=== PATIENT | male | born 1955 | race Caucasian/White ===

== ENCOUNTER 2017-06-13 20:53 | Inpatient (IN) | payer OTHER ==
[2017-06-13 23:01] LABS: BASOPHIL 0.8 % (0-2.0); EOSINOPHIL 6.7 % (0-4.5); MCH 32.8 pg (25.7-33.7); MEAN CELL VOLUME 96.5 fl (80-96); MEAN PLT VOLUME 9.1 fl (7.5-11.1); NEUTROPHILS 67.5 % (42.8-82.8); PLATELET COUNT 179 K/MM3 (134-434); RDW 12.9 % (11.9-15.9); WHITE BLOOD COUNT 11.2 K/mm3 (4.0-10.0)
[2017-06-13 23:13] LABS: INR 1.69 (0.82-1.09); PROTHROMBIN TIME (PATIENT) 18.8 SEC (9.98-11.88)
[2017-06-13 23:23] LABS: ALBUMIN 3.8 g/dl (3.4-5.0); ALK PHOS 100 U/L (45-117); ANION GAP 7 (8-16); BILIRUBIN,TOTAL 0.3 mg/dL (0.2-1.0); CALCIUM 9.1 mg/dL (8.5-10.1); CO2 26 mmol/L (21-32); CREATININE 1.1 mg/dL (0.7-1.3); GLUCOSE,RANDOM 110 mg/dL (74-106); SGOT/AST 22 U/L (15-37); SGPT/ALT 35 U/L (12-78); TOT PROT 6.9 g/dl (6.4-8.2)
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
[2017-06-14] MEDS ORDERED: CLINDAMYCIN 600MG PREMIX IVPB 50 ML IVPB ONE ×3 (00:13→08:35)
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
[2017-06-14] MEDS ORDERED: ACETAMINOPHEN 325 MG TABLET (FP) PO PRN (01:12)
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
[2017-06-14] MEDS ORDERED: METOPROLOL TARTRATE 5 MG/5 ML VIAL IVPUSH PRN (01:50)
[2017-06-14] MEDS ORDERED: diazePAM 5 MG TABLET PO ONE (03:21)
[2017-06-14] MEDS ORDERED: diazePAM 5 MG TABLET ONE (03:47)
[2017-06-14] MEDS: diazePAM 5 MG TABLET PO SCH ×4 (06:30→23:03)
[2017-06-14 07:45] LABS: BASOPHIL 0.6 % (0-2.0); EOSINOPHIL 5.1 % (0-4.5); MCH 32.6 pg (25.7-33.7); MCHC 33.7 g/dl (32.0-35.9); MEAN CELL VOLUME 96.8 fl (80-96); NEUTROPHILS 76.4 % (42.8-82.8); PLATELET COUNT 163 K/MM3 (134-434); RDW 12.9 % (11.9-15.9); WHITE BLOOD COUNT 11.7 K/mm3 (4.0-10.0)
[2017-06-14 08:07] LABS: ANION GAP 7 (8-16); CALCIUM 8.9 mg/dL (8.5-10.1); CO2 26 mmol/L (21-32); GLUCOSE,RANDOM 109 mg/dL (74-106)
[2017-06-14 08:16] LABS: FREE T4 0.95 ng/dl (0.76-1.16); THYROID STIMULATING HORMONE 2.18 uIU/ml (0.358-3.74)
[2017-06-14] MEDS: CLINDAMYCIN 600MG PREMIX IVPB 50 ML IVPB SCH ×2 (08:44→17:26)
[2017-06-14] MEDS ORDERED: ACETAMINOPHEN 325 MG TABLET (FP) ONE (08:50)
[2017-06-14] MEDS ORDERED: METOPROLOL SUCCINATE 25 MG TAB.SR.24H (FP) PO SCH (10:00)
[2017-06-14] MEDS ORDERED: METHOCARBAMOL 500 MG TABLET PO SCH ×2 (10:00→22:00)
[2017-06-14 11:25] VITALS: BMI 38.2
[2017-06-14] MEDS ORDERED: PNEUMOC 13-VAL CONJ-DIP CRM/PF 0.5 ML DISP.SYRIN IM ONE (11:25)
[2017-06-14] MEDS: PARoxetine HCL 20 MG TABLET (FP) PO SCH (12:02)
[2017-06-14] MEDS: LITHIUM CARBONATE 300 MG CAPSULE (FP) PO SCH ×2 (12:03→22:49)
--- NOTE | 2017-06-14 12:56 | EKG ---
Test Reason : Blood Pressure : / mmHG Vent. Rate : 109 BPM Atrial Rate : 101 BPM P-R Int : 000 ms QRS Dur : 102 ms QT Int : 380 ms P-R-T Axes : 000 082 032 degrees QTc Int : 511 ms ATRIAL FIBRILLATION WITH RAPID VENTRICULAR RESPONSE INCOMPLETE RIGHT BUNDLE BRANCH BLOCK ABNORMAL ECG WHEN COMPARED WITH ECG OF 22-OCT-2015 21:06, QUESTIONABLE CHANGE IN QRS AXIS REPEAT EKG IF CLINICALLY INDICATED Confirmed by JANICE LANDRUM MD ([id number] on 06/14/2017 12:56:21 PM Referred By: Confirmed By:JANICE LANDRUM MD
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
[2017-06-14] MEDS ORDERED: PNEUMOCOCCAL 23 VACCINE 0.5 ML VIAL IM ONE (15:00)
[2017-06-14] MEDS: HYDROCORTISONE 2.5% TOPICAL CREAM 30 GM TUBE TP SCH ×2 (16:03→22:50)
[2017-06-14] MEDS ORDERED: FUROSEMIDE 40 MG/4 ML INJECTABLE VIAL IVPUSH ONE (18:03)
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
[2017-06-14] MEDS: RIVAROXABAN 20 MG TABLET PO SCH (20:34)
[2017-06-14] MEDS: CYCLOBENZAPRINE HCL 10 MG TABLET (FP) PO SCH (20:34)
[2017-06-14] MEDS: METOPROLOL SUCCINATE 50 MG TAB.SR.24H (FP) PO SCH (22:50)
[2017-06-15] MEDS: CLINDAMYCIN 600MG PREMIX IVPB 50 ML IVPB SCH ×3 (01:38→18:39)
[2017-06-15] MEDS: diazePAM 5 MG TABLET PO SCH ×4 (05:59→23:12)
[2017-06-15 07:37] LABS: BASOPHIL 0.8 % (0-2.0); MEAN PLT VOLUME 9.2 fl (7.5-11.1); NEUTROPHILS 72.5 % (42.8-82.8); PLATELET COUNT 175 K/MM3 (134-434); RDW 12.6 % (11.9-15.9); WHITE BLOOD COUNT 11.3 K/mm3 (4.0-10.0)
[2017-06-15 08:07] LABS: ANION GAP 7 (8-16); CALCIUM 8.9 mg/dL (8.5-10.1); CO2 26 mmol/L (21-32); CREATININE 1.1 mg/dL (0.7-1.3); GLUCOSE,RANDOM 99 mg/dL (74-106)
[2017-06-15] MEDS ORDERED: PARoxetine HCL 10 MG TABLET (FP) ONE (08:59)
[2017-06-15] MEDS ORDERED: PT OWN MED DRAWER 7, Y5N ONE (09:00)
[2017-06-15] MEDS ORDERED: RIVAROXABAN 10 MG TABLET PO SCH (10:00)
[2017-06-15] MEDS: RIVAROXABAN 20 MG TABLET PO SCH (10:12)
[2017-06-15] MEDS: CYCLOBENZAPRINE HCL 10 MG TABLET (FP) PO SCH (10:12)
[2017-06-15] MEDS: LITHIUM CARBONATE 300 MG CAPSULE (FP) PO SCH ×2 (10:12→22:10)
[2017-06-15] MEDS: METOPROLOL SUCCINATE 50 MG TAB.SR.24H (FP) PO SCH ×2 (10:12→22:10)
[2017-06-15] MEDS: HYDROCORTISONE 2.5% TOPICAL CREAM 30 GM TUBE TP SCH ×2 (10:13→22:10)
[2017-06-15] MEDS: PARoxetine HCL 20 MG TABLET (FP) PO SCH (10:13)
--- NOTE | 2017-06-15 14:13 | PN ---
Physical Exam: SUBJECTIVE: Patient seen and examined. says the itching is better. feels better. denies fever. OBJECTIVE: Vital Signs Period Temp Pulse Resp BP Sys/Reyes Pulse Ox Last 24 Hr 97.5 F-98.4 F 87-115 18-20 140-158/80-99 96 GENERAL: The patient is awake, alert, in no acute distress. EYES: PERRL, EOMI LUNGS: Breath sounds equal, clear to auscultation bilaterally, no wheezes, no crackles, no accessory muscle use. HEART: afib, tachycardic, S1, S2 without murmur, rub or gallop. ABDOMEN: firm, nontender, nondistended, normoactive bowel sounds, no guarding EXTREMITIES: 2+ radial pulses, weak DP pulses b/l, blanching erythema from toes to below knees, 1+ nonpitting edema on right, trace on left lower leg, no edema in left foot. left anterior lower leg with 2 fluid filled bulla decreased in size today, lateral with cloudy fluid and medial with serous fluid and few black scabs. right lower anterior leg with large ulcer(eschar fell off with last dressing apparently), scant yellow discharge(none esxpressibly) Laboratory Results - last 24 hr 06/14/17 06/15/17 06/15/17 07:10 05:35 05:35 WBC 11.3 H RBC 4.29 Hgb 13.7 Hct 41.6 MCV 97.0 H MCH 32.0 MCHC 33.0 RDW 12.6 Plt Count 175 MPV 9.2 Neutrophils % 72.5 Lymphocytes % 11.5 D Monocytes % 10.2 Eosinophils % 5.0 H Basophils % 0.8 Sodium 142 Potassium 4.2 Chloride 109 H Carbon Dioxide 26 Anion Gap 7 L BUN 26 H D Creatinine 1.1 Random Glucose 99 Calcium 8.9 [place] 0.6 Active Medications Generic Name Dose Route Start Last Admin Trade Name Freq PRN Reason Stop Dose Admin Acetaminophen 650 mg 06/14/17 01:12 06/14/17 08:58 Tylenol - PO 650 mg Q6H PRN Administration FEVER OR PAIN Cyclobenzaprine HCl 10 mg 06/14/17 19:30 06/15/17 10:12 Flexeril - PO 10 mg DAILY [facility] Administration Diazepam 5 mg 06/14/17 06:00 06/15/17 12:37 Valium - PO 5 mg Q6HPO [facility] Administration Hydrocortisone 1 applic 06/14/17 22:00 06/15/17 10:13 Anusol 2.5% Hc Cream - TP 1 applic BID [facility] Administration Clindamycin Phosphate 50 mls @ 100 mls/hr 06/14/17 08:00 06/15/17 10:13 Cleocin 600 Mg Premix Ivpb - IVPB 100 mls/hr Q8H-IV [facility] Administration [place] Carbonate 600 mg 06/14/17 10:00 06/15/17 10:12 Eskalith - PO 600 mg BID [facility] Administration Metoprolol Succinate 50 mg 06/14/17 22:00 06/15/17 10:12 Toprol Xl - PO 50 mg BID [facility] Administration Metoprolol Tartrate 5 mg 06/14/17 01:50 Lopressor Injection - IVPUSH Q15M PRN HYPERTENSION Paroxetine HCl 20 mg 06/14/17 10:00 06/15/17 10:13 Paxil - PO 20 mg DAILY [facility] Administration Rivaroxaban 20 mg 06/14/17 19:30 06/15/17 10:12 Xarelto - PO 20 mg DAILY [facility] Administration ASSESSMENT/PLAN: 62 yr old man with HTN, Schizophrenia d/o on Li, afib, hx of stroke presents with b/l le cellulitis placed on observation for IV abx. #Cellulitis of b/l lower extremities with bullae on left leg and eschar on right anterior. neg for DVT - Clindamycin IV q6hr 600mg for infection - wnd cultures with presumptive MSSA, awaiting final C&S to change to oral abx and determine duration - Tylenol 650mg q6 PRN for fever/pain - anusol topical BID on left leg, bacitracin on right leg with dressing changes daily - can give benadryl prn if pt complains of c/o pruritis # Atrial Fibrillation - Xarelto 20mg - rate control with Metoprolol 50mg BID #schizophrenia - [place] level within therapeutic range - Li 600mg po bid - Paxil 30mg po daily - psych consult recommend abilify 5mg po daily #Back spams - flexiril 10mg po - valium 5mg po q6hr Dispo: Place in observation DVT: on xarelto Diet: low Na Visit type - Emergency Visit Emergency Visit: No - New Patient This patient is new to me today: No - Critical Care Critical Care patient: No - Discharge Referral Referred to [facility] No
[2017-06-15] MEDS: BACITRACIN 15 GM TUBE TOPICAL OINTMENT TP SCH (14:35)
--- NOTE | 2017-06-15 15:08 | PN ---
Teaching Attending Note Name of Resident: Montse Eddy ATTENDING PHYSICIAN STATEMENT I saw and evaluated the patient. I reviewed the resident's note and discussed the case with the resident. I agree with the resident's findings and plan as documented. SUBJECTIVE:states pain is improving. denies CP, SOB, fever, chills, N/V/C/D OBJECTIVE: Last Vital Signs Temp Pulse Resp BP Pulse Ox 97.5 F L 105 H 20 142/99 96 06/15/17 14:10 06/15/17 14:10 06/15/17 14:10 06/15/17 14:10 06/14/17 22:00 General NAD Extremities 2+ pitting edema B/L LE, RLE 2 cm ulcer with oozing serous drainage multiple excoriations on LLE ASSESSMENT AND PLAN 62yo M with PMH schizophrenia, CVA, AFIB presented with B/L LE cellulitis 1. B/L LE cellulitis-+WCX showing presumptive MSSA. slight improvement on Clindamycin. however continues to be purulent requiring IV abx. will cont abx therapy for now and wait to c&s are available. 2. Persecutory delusions-appears more calm today and less delusional. was able to confirm with brother that he ensures he takes medications daily. lithium level therapeutic. psych consulted. ky not required at this time will wait for their assessment. 3. LE edema- check echo to r/o CHF. cont to monitor 4. Afib on xarelto- rate controlled. cont home medications, xarelto 5. CVA 6. DVT ppx- xarelto
--- NOTE | 2017-06-15 17:51 | CON.PSY ---
Psychiatry Consult Chief Complaint: I am ok, staff says he has paranoid delusions. Symptoms: reports: Anxiety, Paranoia - Previous Psychiatric Treatment Outpatient: More than 6 mos ago Inpatient: 2 or more prior admissions - Previous Substance Abuse Treatment Outpatient: None Inpatient: None - Reason for Previous Treatment Reason for Previous Treatment: Biploar Illness, Psychotic Episode - Current Medications Current Medications: Active Medications Acetaminophen (Tylenol -) 650 mg PO Q6H PRN PRN Reason: FEVER OR PAIN Last Admin: 06/14/17 08:58 Dose: 650 mg Bacitracin (Bacitracin -) 1 applic TP DAILY [facility] Last Admin: 06/15/17 14:35 Dose: 1 applic Cyclobenzaprine HCl (Flexeril -) 10 mg PO DAILY [facility] Last Admin: 06/15/17 10:12 Dose: 10 mg Diazepam (Valium -) 5 mg PO Q6HPO [facility] Last Admin: 06/15/17 12:37 Dose: 5 mg Hydrocortisone (Anusol 2.5% Hc Cream -) 1 applic TP BID [facility] Last Admin: 06/15/17 10:13 Dose: 1 applic Clindamycin Phosphate (Cleocin 600 Mg Premix Ivpb -) 50 mls @ 100 mls/hr IVPB Q8H-IV [facility] Last Admin: 06/15/17 10:13 Dose: 100 mls/hr [place] Carbonate (Eskalith -) 600 mg PO BID [facility] Last Admin: 06/15/17 10:12 Dose: 600 mg Metoprolol Succinate (Toprol Xl -) 50 mg PO BID [facility] Last Admin: 06/15/17 10:12 Dose: 50 mg Metoprolol Tartrate (Lopressor Injection -) 5 mg IVPUSH Q15M PRN PRN Reason: HYPERTENSION Paroxetine HCl (Paxil -) 20 mg PO DAILY [facility] Last Admin: 06/15/17 10:13 Dose: 20 mg Rivaroxaban (Xarelto -) 20 mg PO DAILY [facility] Last Admin: 06/15/17 10:12 Dose: 20 mg - Allergies Allergies: Allergies Allergy/AdvReac Type Severity Reaction Status Date / Time Penicillins Allergy Unknown Verified 06/13/17 23:08 - Current Living Status Usual Living Arrangement: Alone - Current Mental Status Evaluation Appearance: Disheveled Attitude: Cooperative - Affect Affect: Full Range Appropriateness: Appropriate to Content - Mood Mood: Anxious - Speech/Language Expressive: Coherent Receptive: Age Appropriate Comprehension of Spoken Words - Psychomotor Activity Psychomotor Activity: Normal - Thought Process Thought Process: Circumstantial - Thought Content Hallucinations: Absent Delusions: Present Type: Persectory - Self Perception Self Perception: No Impairment - Cognition Attention: Alert Orientation: Time Memory, Immediate Recall: Intact Memory, Short Term: 2/3 Memory, Remote with Promptin/3 - Concentration Serial Sevens Intact: No Simple Calculations Intact: No - Abstraction Proverb Interpretation: Intact Judgement: Minimally Impaired - Insight Insight: Intact - Impulse Control Impulse Control: Good Control - Suicidal Ideation Suicidal Ideation: No - Homicidal Ideation Homicidal Ideation: No Assessment/Plan aDd abilify 5mg po od.
[2017-06-15] MEDS ORDERED: MUPIROCIN 2% TOPICAL OINTMENT 22 GM TUBE TP SCH (22:00)
[2017-06-15] MEDS ORDERED: CYCLOBENZAPRINE HCL 10 MG TABLET (FP) PO ONE (22:57)
[2017-06-15] MEDS: morphine CARPU-JECT 4 MG/1 ML DISP.SYRIN IVPUSH PRN (23:12)
[2017-06-16] MEDS: CLINDAMYCIN 600MG PREMIX IVPB 50 ML IVPB SCH ×3 (02:04→17:55)
[2017-06-16] MEDS: diazePAM 5 MG TABLET PO SCH ×4 (05:58→23:29)
[2017-06-16] MEDS ORDERED: PARoxetine HCL 10 MG TABLET (FP) ONE (08:59)
[2017-06-16] MEDS: morphine CARPU-JECT 4 MG/1 ML DISP.SYRIN IVPUSH PRN (09:04)
[2017-06-16] MEDS: LITHIUM CARBONATE 300 MG CAPSULE (FP) PO SCH ×2 (09:05→21:15)
[2017-06-16] MEDS: CYCLOBENZAPRINE HCL 10 MG TABLET (FP) PO SCH ×2 (09:05→21:15)
[2017-06-16] MEDS: HYDROCORTISONE 2.5% TOPICAL CREAM 30 GM TUBE TP SCH ×2 (09:05→21:16)
[2017-06-16] MEDS: ARIPiprazole 5 MG TABLET (FP) PO SCH (09:05)
[2017-06-16] MEDS: BACITRACIN 15 GM TUBE TOPICAL OINTMENT TP SCH (09:06)
[2017-06-16] MEDS: METOPROLOL SUCCINATE 50 MG TAB.SR.24H (FP) PO SCH ×2 (09:07→21:15)
[2017-06-16] MEDS: PARoxetine HCL 20 MG TABLET (FP) PO SCH (09:07)
[2017-06-16] MEDS: RIVAROXABAN 20 MG TABLET PO SCH (09:08)
--- NOTE | 2017-06-16 13:51 | PN ---
Physical Exam: SUBJECTIVE: Patient seen and examined feels well, c/o back spasms last night, non-radiating, continuos, no relieving/ exacerbating factors. OBJECTIVE: Vital Signs Period Temp Pulse Resp BP Sys/Reyes Pulse Ox Last 24 Hr 2 F-98.2 F 83-105 18-20 117-150/60-99 95-99 GENERAL: The patient is awake, alert, in no acute distress. LUNGS: Breath sounds equal, clear to auscultation bilaterally HEART: afib, regular rate, S1, S2 without murmur ABDOMEN: firm, nontender, nondistended, normoactive bowel sounds, no guarding EXTREMITIES: weak DP pulses b/l, 1+ nonpitting edema on right, trace on left lower leg, no edema in left foot. left anterior lower leg with 2 fluid filled bulla further decreased in size today, lateral with cloudy fluid and medial with serous fluid and few black scabs. right lower anterior leg with large open ulcer, scant yellow discharge(none esxpressible. Active Medications Generic Name Dose Route Start Last Admin Trade Name Freq PRN Reason Stop Dose Admin Acetaminophen 650 mg 06/14/17 01:12 06/14/17 08:58 Tylenol - PO 650 mg Q6H PRN Administration FEVER OR PAIN Aripiprazole 5 mg 06/16/17 10:00 06/16/17 09:05 Abilify PO 5 mg DAILY [facility] Administration Bacitracin 1 applic 06/15/17 14:30 06/16/17 09:06 Bacitracin - TP 1 applic DAILY [facility] Administration Cyclobenzaprine HCl 10 mg 06/16/17 10:00 06/16/17 09:05 Flexeril - PO 10 mg BID [facility] Administration Diazepam 5 mg 06/14/17 06:00 06/16/17 12:19 Valium - PO 5 mg Q6HPO [facility] Administration Hydrocortisone 1 applic 06/14/17 22:00 06/16/17 09:05 Anusol 2.5% Hc Cream - TP 1 applic BID [facility] Administration Clindamycin Phosphate 50 mls @ 100 mls/hr 06/14/17 08:00 06/16/17 09:06 Cleocin 600 Mg Premix Ivpb - IVPB 100 mls/hr Q8H-IV [facility] Administration [place] Carbonate 600 mg 06/14/17 10:00 06/16/17 09:05 Eskalith - PO 600 mg BID [facility] Administration Metoprolol Succinate 50 mg 06/14/17 22:00 06/16/17 09:07 Toprol Xl - PO 50 mg BID [facility] Administration Metoprolol Tartrate 5 mg 06/14/17 01:50 Lopressor Injection - IVPUSH Q15M PRN HYPERTENSION Morphine Sulfate 4 mg 06/15/17 22:59 06/16/17 09:04 Morphine Injection - IVPUSH 4 mg Q6H PRN Administration PAIN Paroxetine HCl 20 mg 06/14/17 10:00 06/16/17 09:07 Paxil - PO 20 mg DAILY [facility] Administration Rivaroxaban 20 mg 06/14/17 19:30 06/16/17 09:08 Xarelto - PO 20 mg DAILY [facility] Administration ASSESSMENT/PLAN: 62 yr old man with HTN, Schizophrenia d/o on Li, afib, hx of stroke presents with b/l le cellulitis admitted for IV abx. #Cellulitis of b/l lower extremities with bullae on left leg and eschar on right anterior - Clindamycin IV q6hr 600mg for infection - wnd cultures with staph aureus (R-erythromycin and juan) - Tylenol 650mg q6 PRN for fever/pain - anusol topical BID on left leg, bacitracin on right leg with dressing changes daily - can give benadryl prn if pt complains of c/o pruritis # Atrial Fibrillation - Xarelto 20mg - rate control with Metoprolol 50mg BID #schizophrenia - [place] level within therapeutic range - Li 600mg po bid - Paxil 30mg po daily - abilify 5mg po daily #Back spams - flexiril 10mg po BID - valium 5mg po q6hr - started on morphine 4mg q6hr prn Dispo: admitted for further abx DVT: on xarelto Diet: low Na Visit type - Emergency Visit Emergency Visit: No - New Patient This patient is new to me today: No - Critical Care Critical Care patient: No
--- NOTE | 2017-06-16 16:14 | PN ---
Teaching Attending Note Name of Resident: Montse Eddy ATTENDING PHYSICIAN STATEMENT I saw and evaluated the patient. I reviewed the resident's note and discussed the case with the resident. I agree with the resident's findings and plan as documented. SUBJECTIVE:states pain in leg is improving. denies CP, SOB, fever, chills, N/V/C /D OBJECTIVE: Last Vital Signs Temp Pulse Resp BP Pulse Ox 98.5 F 84 20 131/81 98 06/16/17 13:40 06/16/17 13:40 06/16/17 13:40 06/16/17 13:40 06/16/17 08:07 General NAD Extremities 2+ pitting edema B/L LE, RLE 2 cm ulcer with oozing serous/pus drainage multiple excoriations on LLE ASSESSMENT AND PLAN 62yo M with PMH schizophrenia, CVA, AFIB presented with B/L LE cellulitis 1. B/L LE cellulitis-improving but continues to have active drainage. will monitor for when no longer oozing. cont clindamycin day 3. pt has PCN allergy. 2. Persecutory delusions-appears more calm today and less delusional. started on abilify by psych 3. LE edema- persistent. will give lasix 40mg IVP x1. echo showing normal EF but mod-severe MR. will need cardio follow up as outpatient. notified attendant honor bar who will see once discharged 4. Afib on xarelto- rate controlled. cont home medications, xarelto 5. CVA 6. DVT ppx- xarelto
[2017-06-16] MEDS ORDERED: PT OWN MED DRAWER 7, Y5N ONE (20:35)
[2017-06-17] MEDS: CLINDAMYCIN 600MG PREMIX IVPB 50 ML IVPB SCH ×3 (02:07→18:04)
[2017-06-17] MEDS: diazePAM 5 MG TABLET PO SCH ×3 (06:43→18:04)
[2017-06-17] MEDS ORDERED: PARoxetine HCL 10 MG TABLET (FP) ONE (09:00)
[2017-06-17] MEDS ORDERED: PT OWN MED DRAWER 7, Y5N ONE (09:01)
[2017-06-17] MEDS: LITHIUM CARBONATE 300 MG CAPSULE (FP) PO SCH ×2 (09:13→21:07)
[2017-06-17] MEDS: ARIPiprazole 5 MG TABLET (FP) PO SCH (09:13)
[2017-06-17] MEDS: CYCLOBENZAPRINE HCL 10 MG TABLET (FP) PO SCH ×2 (09:13→21:07)
[2017-06-17] MEDS: PARoxetine HCL 20 MG TABLET (FP) PO SCH (09:14)
[2017-06-17] MEDS: METOPROLOL SUCCINATE 50 MG TAB.SR.24H (FP) PO SCH ×2 (09:14→21:07)
[2017-06-17] MEDS: RIVAROXABAN 20 MG TABLET PO SCH (09:14)
[2017-06-17] MEDS: BACITRACIN 15 GM TUBE TOPICAL OINTMENT TP SCH (09:24)
[2017-06-17] MEDS: HYDROCORTISONE 2.5% TOPICAL CREAM 30 GM TUBE TP SCH ×2 (09:24→21:10)
--- NOTE | 2017-06-17 11:18 | PN ---
Physical Exam: SUBJECTIVE: Patient seen and examined at bedside today. Overnight, pt afebrile. Nursing staff stated that pt had bacitracin/hydrocortisone applied overnight on his lower extremities for his cellulitis. Pt also had back spasms overnight which were tx with morphine 4mg IV and flexeril 10mg. On AM examination, pt states that his legs are mildly tender when palpated. OBJECTIVE: Vital Signs Period Temp Pulse Resp BP Sys/Reyes Pulse Ox Last 24 Hr 96.5 F-99 F 84-108 18-20 124-146/67-92 97-98 GENERAL: The patient is awake, alert, and fully oriented, in no acute distress. HEAD: Normal with no signs of trauma. EYES: PERRL, extraocular movements intact, sclera anicteric, conjunctiva clear. NECK: Trachea midline, supple. LUNGS: Breath sounds equal, clear to auscultation bilaterally, no wheezes, no crackles, no accessory muscle use. HEART: Regular rate and rhythm, S1, S2 without murmur, rub or gallop. ABDOMEN: Soft, nontender, nondistended, normoactive bowel sounds, no guarding, no rebound, no hepatosplenomegaly, no masses. EXTREMITIES: multiple dark yellow, fluctuant bullae on LLE, erythematous, trace edema, improvement in RLE ulceration with decreased oozing and erythema as per team (today is my first day seeing pt) NEUROLOGICAL: Cranial nerves II through XII grossly intact. PSYCH: did not endorse any delusions this AM Active Medications Generic Name Dose Route Start Last Admin Trade Name Freq PRN Reason Stop Dose Admin Acetaminophen 650 mg 06/14/17 01:12 06/14/17 08:58 Tylenol - PO 650 mg Q6H PRN Administration FEVER OR PAIN Aripiprazole 5 mg 06/16/17 10:00 06/17/17 09:13 Abilify PO 5 mg DAILY HILL Administration Bacitracin 1 applic 06/15/17 14:30 06/17/17 09:24 Bacitracin - TP 1 applic DAILY HILL Administration Cyclobenzaprine HCl 10 mg 06/16/17 10:00 06/17/17 09:13 Flexeril - PO 10 mg BID HILL Administration Diazepam 5 mg 06/14/17 06:00 06/17/17 06:43 Valium - PO 5 mg Q6HPO HILL Administration Hydrocortisone 1 applic 06/14/17 22:00 06/17/17 09:24 Anusol 2.5% Hc Cream - TP 1 applic BID HILL Administration Clindamycin Phosphate 50 mls @ 100 mls/hr 06/14/17 08:00 06/17/17 09:14 Cleocin 600 Mg Premix Ivpb - IVPB 100 mls/hr Q8H-IV HILL Administration Sasser Carbonate 600 mg 06/14/17 10:00 06/17/17 09:13 Eskalith - PO 600 mg BID HILL Administration Metoprolol Succinate 50 mg 06/14/17 22:00 06/17/17 09:14 Toprol Xl - PO 50 mg BID HILL Administration Metoprolol Tartrate 5 mg 06/14/17 01:50 Lopressor Injection - IVPUSH Q15M PRN HYPERTENSION Morphine Sulfate 4 mg 06/15/17 22:59 06/16/17 09:04 Morphine Injection - IVPUSH 4 mg Q6H PRN Administration PAIN Paroxetine HCl 20 mg 06/14/17 10:00 06/17/17 09:14 Paxil - PO 20 mg DAILY HILL Administration Rivaroxaban 20 mg 06/14/17 19:30 06/17/17 09:14 Xarelto - PO 20 mg DAILY HILL Administration ASSESSMENT/PLAN: 62 y/o M with PMH HTN, Schizophrenia, afib, hx of stroke, admitted for bilateral lower extremity cellulitis. #Bilateral lower extremity cellulitis -improving, decreased erythema and oozing RLE -Continue Clindamycin 600 mg IVPB (Today is Day4) -Continue hydrocortisone 2.5% topical application TP BID, Bacitracin 1 applic TP daily -Pain control via Morphine 4mg IVP q6h PRN, Tylenol 650mg PO q6h PRN #Delusions secondary to schizophrenia -pt did not endorse any delusions this AM -Continue Abilify 5mg PO daily -Continue Paxil 20mg PO daily -Continue Sasser carbonate 600mg PO BID #atrial fibrillation -Continue Xarelto 20 mg PO daily #Back spasms- chronic -Continue flexeril 10mg PO BID #HTN-controlled -Continue Toprol XL 50mg BID DVT prophylaxis -on xarelto F/E/N Monitor electrolytes Sodium controlled diet Dispo -if improved tomorrow, for D/C -Can F/u with Dr. Jo as an outpt d/t his severe MR seen on ECHO Visit type - Emergency Visit Emergency Visit: No - New Patient This patient is new to me today: Yes Date on this admission: 06/17/17 - Critical Care Critical Care patient: No
--- NOTE | 2017-06-17 13:30 | PN ---
Teaching Attending Note Name of Resident: Loida Leavitt ATTENDING PHYSICIAN STATEMENT I saw and evaluated the patient. I reviewed the resident's note and discussed the case with the resident. I agree with the resident's findings and plan as documented. SUBJECTIVE:states pain in leg has resolved. reports some back spasms last night which he intermittently has for several years. denies CP, SOB, fever, chills, N/ V/C?D OBJECTIVE: Last Vital Signs Temp Pulse Resp BP Pulse Ox 96.5 F L 107 H 20 131/72 95 06/17/17 09:25 06/17/17 09:25 06/17/17 09:25 06/17/17 09:25 06/17/17 09:00 General NAD Extremities 1+ pitting edema B/L LE, RLE 2 cm ulcer now crusted over, no drainage appreciated. minimal surrounding erythema. multiple excoriations on LLE ASSESSMENT AND PLAN 62yo M with PMH schizophrenia, CVA, AFIB presented with B/L LE cellulitis 1. B/L LE cellulitis-improving, appears to now be drying up. will cont clindaymycin day 4. anticipate will be able to convert tomorrow to po abx. 2. Persecutory delusions-appears more calm today and less delusional. started on abilify by psych 3. LE edema- improved. 4. severe MR- d/w pt results of echo and need for cardio follow up. states he will call his marine driller for appt next week. 5. Afib on xarelto- rate controlled. cont home medications, xarelto 6. CVA 7. DVT ppx- xarelto 8. anticipate discharge tomorrow if cellulitis continues to improve
[2017-06-18] MEDS: diazePAM 5 MG TABLET PO SCH ×2 (01:01→06:31)
[2017-06-18] MEDS: CLINDAMYCIN 600MG PREMIX IVPB 50 ML IVPB SCH ×2 (01:53→10:33)
[2017-06-18] MEDS: morphine CARPU-JECT 4 MG/1 ML DISP.SYRIN IVPUSH PRN (02:55)
[2017-06-18 08:09] LABS: ANION GAP 4 (8-16); CALCIUM 9.1 mg/dL (8.5-10.1); CO2 28 mmol/L (21-32); CREATININE 1.2 mg/dL (0.7-1.3); GLUCOSE,RANDOM 88 mg/dL (74-106)
[2017-06-18 08:15] LABS: MCH 32.2 pg (25.7-33.7); MCHC 33.3 g/dl (32.0-35.9); MEAN CELL VOLUME 96.8 fl (80-96); MEAN PLT VOLUME 9.2 fl (7.5-11.1); PLATELET COUNT 197 K/MM3 (134-434); WHITE BLOOD COUNT 10.1 K/mm3 (4.0-10.0)
--- NOTE | 2017-06-18 09:41 | PN ---
Teaching Attending Note Name of Resident: Loida Leavitt ATTENDING PHYSICIAN STATEMENT I saw and evaluated the patient. I reviewed the resident's note and discussed the case with the resident. I agree with the resident's findings and plan as documented. SUBJECTIVE:asymptomatic. denies CP, SOB, fever, chills, N/V/C/D OBJECTIVE: Last Vital Signs Temp Pulse Resp BP Pulse Ox 97.8 F 103 H 20 129/66 96 06/18/17 05:00 06/18/17 05:00 06/18/17 05:00 06/18/17 05:00 06/17/17 22:00 General NAD Extremities RLE 2 cm ulcer with clean shallow ulcer base, no surrounding erythema. no drainage. fluid filled blisters on LLE decreased in size, minimal fluctuance. CBCD WBC 10.1 K/mm3 (4.0-10.0) H 06/18/17 06:00 RBC 4.48 M/mm3 (4.00-5.60) 06/18/17 06:00 Hgb 14.4 GM/dL (11.7-16.9) 06/18/17 06:00 Hct 43.3 % (35.4-49) 06/18/17 06:00 MCV 96.8 fl (80-96) H 06/18/17 06:00 MCHC 33.3 g/dl (32.0-35.9) 06/18/17 06:00 RDW 13.0 % (11.9-15.9) 06/18/17 06:00 Plt Count 197 K/MM3 (134-434) 06/18/17 06:00 MPV 9.2 fl (7.5-11.1) 06/18/17 06:00 CMP Sodium 141 mmol/L (136-145) 06/18/17 06:00 Potassium 4.4 mmol/L (3.5-5.1) 06/18/17 06:00 Chloride 109 mmol/L (98-107) H 06/18/17 06:00 Carbon Dioxide 28 mmol/L (21-32) 06/18/17 06:00 Anion Gap 4 (8-16) L 06/18/17 06:00 BUN 20 mg/dL (7-18) H D 06/18/17 06:00 Creatinine 1.2 mg/dL (0.7-1.3) 06/18/17 06:00 Creat Clearance w eGFR > 60 (>60) 06/13/17 22:50 Calcium 9.1 mg/dL (8.5-10.1) 06/18/17 06:00 Total Bilirubin 0.3 mg/dL (0.2-1.0) D 06/13/17 22:50 AST 22 U/L (15-37) 06/13/17 22:50 ALT 35 U/L (12-78) 06/13/17 22:50 Alkaline Phosphatase 100 U/L (45-117) D 06/13/17 22:50 Total Protein 6.9 g/dl (6.4-8.2) 06/13/17 22:50 Albumin 3.8 g/dl (3.4-5.0) 06/13/17 22:50 ASSESSMENT AND PLAN 62yo M with PMH schizophrenia, CVA, AFIB presented with B/L LE cellulitis 1. B/L LE cellulitis-+MSSA. clindamycin day 5. will transition to po to complete 10 day course. instructed proper wound management with clean/dry dressing. teaching by nurse.instructed to follow up with PMD prior to completion of abx for evaluation and if further abx are necessary 2. Persecutory delusions-calm. cont management 3. LE edema- improved. 4. severe MR- d/w pt results of echo and need for cardio follow up. states he will call his sack sorter for appt next week. 5. Afib on xarelto- rate controlled. cont home medications, xarelto 6. CVA 7. DVT ppx- xarelto 8. d/c on clinda to complete 10 day course. will need PMD and cardiology follow up in 1 week. d/w pt in details. answered all questions. verbalized agreement [facility] plan
[2017-06-18] MEDS ORDERED: PARoxetine HCL 10 MG TABLET (FP) ONE (10:25)
[2017-06-18] MEDS ORDERED: PT OWN MED DRAWER 7, Y5N ONE (10:26)
[2017-06-18] MEDS: METOPROLOL SUCCINATE 50 MG TAB.SR.24H (FP) PO SCH (10:33)
[2017-06-18] MEDS: LITHIUM CARBONATE 300 MG CAPSULE (FP) PO SCH (10:33)
[2017-06-18] MEDS: ARIPiprazole 5 MG TABLET (FP) PO SCH (10:33)
[2017-06-18] MEDS: PARoxetine HCL 20 MG TABLET (FP) PO SCH (10:33)
[2017-06-18] MEDS: CYCLOBENZAPRINE HCL 10 MG TABLET (FP) PO SCH (10:33)
[2017-06-18] MEDS: RIVAROXABAN 20 MG TABLET PO SCH (10:33)
[2017-06-18] MEDS: HYDROCORTISONE 2.5% TOPICAL CREAM 30 GM TUBE TP SCH (10:34)
[2017-06-18] MEDS: BACITRACIN 15 GM TUBE TOPICAL OINTMENT TP SCH (10:34)
[2017-06-18 13:36] VITALS: BP 131/62; PULSE 97; TEMP 98.1
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
== END 2017-06-18 14:38 | disposition home or self-care (01) | DRG 603 ==
LOC: JER 20:53 → JERBED 06-14 00:38 → UNDOADMIN 06-14 00:45 → J7W 06-14 10:54
PROVIDERS: ADMIT Internal Medicine; ATTEND Internal Medicine
DX: L03.116 Cellulitis of left lower limb (principal); L03.115 Cellulitis of right lower limb; I48.91 Unspecified atrial fibrillation; F20.9 Schizophrenia, unspecified; Z86.73 Personal history of transient ischemic attack (TIA), and cerebral infarction without residual deficits; I34.0 Nonrheumatic mitral (valve) insufficiency; I10 Essential (primary) hypertension; R60.9 Edema, unspecified
CPT/HCPCS: 36415; 71010-TC; 73590-TC-LT; 73590-TC-RT; 80048; 80053; 80178; 83605; 84439; 84443; 85025; 85027; 85610; 87040; 87070; 87186; 87205; 90732; 93005; 93010; 93306-TC; 93970-TC; 99283-25; G0009

== ENCOUNTER 2017-07-18 23:59 | Emergency (ER) | payer OTHER ==
[2017-07-19 00:54] VITALS: BMI 38.2
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
[2017-07-19 01:31] LABS: BASOPHIL 1.1 % (0-2.0); EOSINOPHIL 5.6 % (0-4.5); MCHC 33.5 g/dl (32.0-35.9); MEAN CELL VOLUME 95.6 fl (80-96); MEAN PLT VOLUME 8.7 fl (7.5-11.1); NEUTROPHILS 67.7 % (42.8-82.8); PLATELET COUNT 203 K/MM3 (134-434); RDW 13.2 % (11.9-15.9); WHITE BLOOD COUNT 12.7 K/mm3 (4.0-10.0)
[2017-07-19 02:06] LABS: ALK PHOS 98 U/L (45-117); ANION GAP 8 (8-16); BILIRUBIN,TOTAL 0.5 mg/dL (0.2-1.0); CO2 24 mmol/L (21-32); GLUCOSE,RANDOM 93 mg/dL (74-106); SGPT/ALT 40 U/L (12-78); TOT PROT 7.4 g/dl (6.4-8.2)
[2017-07-19 02:08] LABS: SGOT/AST 23 U/L (15-37)
[2017-07-19 02:49] VITALS: BP 133/89; PULSE 88; TEMP 97.9
== END 2017-07-19 02:52 | disposition home or self-care (01) ==
LOC: JER 23:59
DX: R23.8 Other skin changes (principal); I48.91 Unspecified atrial fibrillation; Z79.01 Long term (current) use of anticoagulants; F25.9 Schizoaffective disorder, unspecified; F31.9 Bipolar disorder, unspecified; Z86.73 Personal history of transient ischemic attack (TIA), and cerebral infarction without residual deficits
CPT/HCPCS: 36415; 80053; 85025; 99282-25

== ENCOUNTER → 2017-07-19 | Emergency (ER) | payer OTHER ==
[~2017-07-19] MED LIST: BACITRACIN 0.9 GM PACKET ONE; BACITRACIN 15 GM TUBE TOPICAL OINTMENT TP ONE; CLINDAMYCIN HCL 150 MG CAPSULE (FP) ONE; CLINDAMYCIN HCL 150 MG CAPSULE (FP) PO STA; CLINDAMYCIN HCL 300 MG CAPSULE PO STA
[2017-07-19 19:38] VITALS: BP 132/76; PULSE 66; TEMP 97.8; BMI 38.2
--- NOTE | 2017-07-19 20:59 | PDOC ---
History of Present Illness <Kasandra Jacome - Last Filed: 07/19/17 21:09> - History of Present Illness Initial Comments: 07/19/17 21:47 The patient is a 62 year old male, with a significant past medical history of Afib (on Xarelto), CVA (2015), schizoaffective, who presents to the emergency department with weeping lesions and blisters to his bilateral lower extremities. The patient states he was seen last night for the same complaint, however, reports the big one started leaking today. He denies any other symptoms. He denies using medications or creams for his lesions. He presents with the blisters and lesions exposed. He denies chest pain, shortness of breath, headache and dizziness. He denies fever, chills, nausea, vomit, diarrhea and constipation. He denies dysuria, frequency, urgency and hematuria. Allergies: penicillins Social history: Pt denies tobacco, alcohol, or illicit drug use PCP - Dr. Davonte Alvarez <Nahomy Bill - Last Filed: 07/19/17 21:48> - General Chief Complaint: Wound Stated Complaint: WOUND Time Seen by Provider: 07/19/17 20:08 Past History - Past Medical History Cardiac Disorders: Yes (A-fib) CVA: Yes (2014) Psychiatric Problems: Yes (DEPRESSION,ANXIETY,BIPOLAR?) Suicide Attempt (Hx): No - Psycho/Social/Smoking Cessation Hx Anxiety: Yes Suicidal Ideation: No Smoking History: Never smoked Have you smoked in the past 12 months: No Number of Cigarettes Smoked Daily: 0 Information on smoking cessation initiated: No Hx Alcohol Use: No Drug/Substance Use Hx: No Substance Use Type: None <Kasandra Jacome - Last Filed: 07/19/17 21:09> <Nahomy Bill - Last Filed: 07/19/17 21:48> - Past Medical History Allergies/Adverse Reactions: Allergies Allergy/AdvReac Type Severity Reaction Status Date / Time Penicillins Allergy Unknown Verified 07/19/17 19:35 Home Medications: Ambulatory Orders [place] Carbonate [Eskalith -] 600 mg PO BID 06/28/15 Paroxetine HCl [Paxil] 20 mg PO DAILY 06/28/15 Metoprolol Succinate [Toprol XL -] 50 mg PO BID 12/16/15 Rivaroxaban [Xarelto] 20 mg PO DAILY 10/22/15 Acetaminophen [Tylenol .Extra-Strength -] 1,000 mg PO Q6H #100 tablet 08/13/16 Alfuzosin HCl [Alfuzosin HCl ER] 10 mg PO DAILY 06/14/17 Bacitracin - [Bacitracin Topical Ointment -] 1 applic TP BID #1 applic 07/19/17 Clindamycin [Cleocin -] 300 mg PO TID #21 capsule 07/19/17 Review of Systems - Review of Systems Able to Perform ROS?: Yes Comments:: 07/19/17 21:47 CONSTITUTIONAL: Absent: fever, no chills, no fatigue EYES: Absent: visual changes ENT: Absent: ear pain, no sore throat CARDIOVASCULAR: Absent: chest pain, no palpitations RESPIRATORY: Absent: cough, no SOB GI: Absent: abdominal pain, no nausea, no vomiting, no constipation, no diarrhea GENITOURINARY: Absent: dysuria, no frequency, no hematuria MUSCULOSKELETAL: Absent: back pain, no arthralgia, no myalgia SKIN: (+) weeping blisters to bilateral LE. Absent: rash NEURO: Absent: headache <Nahomy Bill - Last Filed: 07/19/17 21:48> *Physical Exam - Vital Signs Last Vital Signs Temp Pulse Resp BP Pulse Ox 97.8 F 66 19 132/76 97 07/19/17 19:36 07/19/17 19:36 07/19/17 19:36 07/19/17 19:36 07/19/17 19:36 <Kasandra Jacome - Last Filed: 07/19/17 21:09> - Vital Signs Last Vital Signs Temp Pulse Resp BP Pulse Ox 97.8 F 66 19 132/76 97 07/19/17 19:36 07/19/17 19:36 07/19/17 19:36 07/19/17 19:36 07/19/17 19:36 - Physical Exam Comments: 07/19/17 21:47 GENERAL: Well-appearing, well-nourished. No apparent distress. HEENT: Normocephalic, atraumatic. PERRL, EOM intact. CARDIOVASCULAR: Normal S1, S2. Regular rate and rhythm. PULMONARY: Clear to auscultation bilaterally. ABDOMEN: Soft, non-distended, non-tender. EXTREMITIES: Normal ROM in all four extremities. No gross deformities. SKIN: (+) bilateral blisters and some weeping lesions. Warm, dry. NEUROLOGICAL: No focal neurological deficits. <Nahomy Bill - Last Filed: 07/19/17 21:48> ED Treatment Course - Medications Given in the ED: ED Medications Discontinued Medications Generic Name Dose Route Start Last Admin Trade Name Yeimy PRN Reason Stop Dose Admin Bacitracin 1 applic 07/19/17 21:00 07/19/17 21:18 Bacitracin - TP 07/19/17 21:01 1 appful ONCE ONE Administration Clindamycin HCl 600 mg 07/19/17 21:04 07/19/17 21:18 Cleocin - PO 07/19/17 21:05 600 mg ONCE STA Administration <Nahomy Bill - Last Filed: 07/19/17 21:48> *DC/Admit/Observation/Transfer <Kasandra Jacome - Last Filed: 07/19/17 21:09> - Attestations Scribe Attestion: 07/19/17 21:47 Documentation prepared by Nahomy Bill, acting as biomedical equipment specialist for Kasandra Jacome MD <Nahomy Bill - Last Filed: 07/19/17 21:48> Diagnosis at time of Disposition: Skin bulla - Discharge Dispostion Disposition: HOME Condition at time of disposition: Stable - Prescriptions Prescriptions: Bacitracin - [Bacitracin Topical Ointment -] 1 applic TP BID #1 applic Clindamycin [Cleocin -] 300 mg PO TID #21 capsule - Referrals Referrals: Davonte Alvarez [Primary Care Provider] - - Patient Instructions Additional Instructions: please grape picker your medications at the [facility] pharmacy on [address] Make an appointment to see your regular physician
== END | disposition home or self-care (01) ==
LOC: JER 19:20
DX: R23.8 Other skin changes (principal); I48.91 Unspecified atrial fibrillation; Z79.01 Long term (current) use of anticoagulants; F25.9 Schizoaffective disorder, unspecified; F31.9 Bipolar disorder, unspecified; F41.8 Other specified anxiety disorders
CPT/HCPCS: 99281-25

== ENCOUNTER 2017-08-15 02:10 | Emergency (ER) | payer OTHER ==
[2017-08-15 02:33] VITALS: BP 123/65; PULSE 69; TEMP 98.8; BMI 36.9
--- NOTE | 2017-08-15 03:12 | PDOC ---
History of Present Illness - General Chief Complaint: Decubitus Ulcer Stated Complaint: SORE ON LEG Time Seen by Provider: 08/15/17 02:42 History Source: Patient Exam Limitations: No Limitations - History of Present Illness Initial Comments: 08/15/17 03:06 62yo Male patient w/ PmHx: LE Cellulitis, Afib (Xarelto), CVA (2015), HTN, Schizoaffective presents to ED c/o bilateral LE infection. Patient reports he was admitted to hospital a few months ago, and return to the ED 2 other times for infection and put on Clindamycin. Patient now returns requesting more antibiotics. He denies fever, CP, Abd pain, diff breathing, n/v/d, back pain, leg pain, leg swelling, or any other complaints at this time. PCP- Dr. Alvarez. (last visit 6 months ago). Timing/Duration: constant Severity: mild Modifying Factors: worse with: cold therapy, eating, immobilization, medication , movement, rest, other Associated Symptoms: denies: denies symptoms, chest pain, cough, diaphoresis, fever/chills, headaches, loss of appetite, malaise, nausea/vomiting, rash, seizure, shortness of breath, syncope, weakness, other Aspirin Received prior to arrival: No: no aspirin today, unknown, 81 mg x 1, 81 mg x 2, 81 mg x 3, 81 mg x 4, 325 mg x 1, provided at home, provided by EMS, provided by ED [facility] Contraindications(Core Measure): No: Allergy, Other, Active Blding w/i 24 hrs., Plavix, Receiving Warfarin Past History - Travel Traveled outside of the country in the last 30 days: No Close contact w/someone who was outside of country & ill: No - Past Medical History Allergies/Adverse Reactions: Allergies Allergy/AdvReac Type Severity Reaction Status Date / Time Penicillins Allergy Unknown Verified 08/15/17 02:31 Home Medications: Ambulatory Orders [place] Carbonate [Eskalith -] 600 mg PO BID 06/28/15 Paroxetine HCl [Paxil] 20 mg PO DAILY 06/28/15 Metoprolol Succinate [Toprol XL -] 50 mg PO BID 10/22/15 Rivaroxaban [Xarelto] 20 mg PO DAILY 10/22/15 Acetaminophen [Tylenol .Extra-Strength -] 1,000 mg PO Q6H #100 tablet 10/07/16 Alfuzosin HCl [Alfuzosin HCl ER] 10 mg PO DAILY 06/14/17 Bacitracin - [Bacitracin Topical Ointment -] 1 applic TP BID #1 applic 07/19/17 Clindamycin [Cleocin -] 300 mg PO TID #21 capsule 07/19/17 Mupirocin Ointment [Bactroban 2% Ointment -] 1 applic TP TID PRN #1 tube Cardiac Disorders: Yes (A-fib) CVA: Yes (2014) Psychiatric Problems: Yes (DEPRESSION,ANXIETY,BIPOLAR?) - Suicide/Smoking/Psychosocial Hx Smoking History: Never smoked Have you smoked in the past 12 months: No Number of Cigarettes Smoked Daily: 0 Information on smoking cessation initiated: No Hx Alcohol Use: No Drug/Substance Use Hx: No Substance Use Type: None Review of Systems - Review of Systems Able to Perform ROS?: Yes Is the patient limited Faroese proficient: No Integumentary: Yes: Lesions, Pruritus, Rash. No: Bruising, Dryness, Erythema, Pallor, Sweating All Other Systems: Reviewed and Negative *Physical Exam - Vital Signs Last Vital Signs Temp Pulse Resp BP Pulse Ox 98.8 F 69 16 123/65 95 08/15/17 02:31 08/15/17 02:31 08/15/17 02:31 08/15/17 02:31 08/15/17 02:31 - Physical Exam General Appearance: Yes: Nourished, Appropriately Dressed. No: Apparent Distress, Mild Distress, Moderate Distress, Severe Distress Respiratory/Chest: positive: Lungs Clear, Normal Breath Sounds. negative: Chest Tender, Respiratory Distress, Accessory Muscle Use, Labored Respiration, Rapid RR Cardiovascular: positive: Regular Rhythm, Regular Rate Musculoskeletal: positive: Normal Inspection. negative: CVA Tenderness, Decreased Range of Motion, Vertebral Tenderness Extremity: positive: Normal Capillary Refill, Normal Inspection, Normal Range of Motion, Pedal Edema. negative: Tender, Swelling, Calf Tenderness, Erythema, Inflammation Integumentary: positive: Normal Color, Dry, Warm. negative: Erythema, Rash, Swelling, Bruising Neurologic: positive: coil builder II-XII NML intact, Fully Oriented, Alert, Normal Mood/ Affect, Normal Response, Motor Strength 5/5 Medical Decision Making - Medical Decision Making 08/15/17 03:12 62yo Male patient presents c/o BLE skin infection. Infection/skin condition appears chronic in nature. No inflammation, active infection, weeping, redness, increased warmth, calf tenderness, excess swelling, open sores. healing sores noted w/ some intact blisters, warm and dry to touch. Non-tender. Condition secondary to itching. Patient was instructed to follow up with wound care and his primary care provider. Patient was under the impression that he was to continue using the emergency department for this chronic issue. Patient teaching done on follow up. Rx: Bactroban given, and referral to wound care. *DC/Admit/Observation/Transfer Diagnosis at time of Disposition: Wound of skin - Discharge Dispostion Disposition: HOME Condition at time of disposition: Stable Admit: No - Prescriptions Prescriptions: Mupirocin Ointment [Bactroban 2% Ointment -] 1 applic TP TID PRN #1 tube PRN Reason: Wound Care - Patient Instructions Printed Discharge Instructions: Skin Wound Additional Instructions: Call wound care on Tuesday at . You must schedule your own appointment for evaluation. Apply ointment as directed. Wash area with soap and warm water prior to application of ointment. Return if you develop fever or calf pain. Also, follow up with your primary care doctor for further evaluation. Print Language: LUX[place]BOURGISH
== END 2017-08-15 03:41 | disposition home or self-care (01) ==
LOC: JER 02:10
DX: S81.802S Unspecified open wound, left lower leg, sequela (principal); S81.801S Unspecified open wound, right lower leg, sequela; X58.XXXS Exposure to other specified factors, sequela; I48.91 Unspecified atrial fibrillation; I10 Essential (primary) hypertension; F25.9 Schizoaffective disorder, unspecified; Z79.01 Long term (current) use of anticoagulants; Z86.73 Personal history of transient ischemic attack (TIA), and cerebral infarction without residual deficits; Z88.0 Allergy status to penicillin
CPT/HCPCS: 99281-25

== ENCOUNTER 2017-09-17 20:44 | Emergency (ER) | payer OTHER ==
[2017-09-17 20:50] VITALS: BP 120/70; PULSE 85; TEMP 98.1; BMI 36.9
[2017-09-17] MEDS ORDERED: DIPHTH,PERTUSS(ACELL),TET 0.5 ML DISP.SYRIN IM ONE (21:49)
--- NOTE | 2017-09-17 21:56 | PDOC ---
History of Present Illness - General Chief Complaint: Abrasion Stated Complaint: INJURY Time Seen by Provider: 09/17/17 21:46 History Source: Patient Exam Limitations: Language Barrier - History of Present Illness Initial Comments: 09/17/17 21:50 62-year-old obese gentleman presents to the ED with right foot injury. Patient states was walking barefoot in his house when he abraded the nail head on hard wooden porch with the bottom of his foot lifting up his skin causing discomfort. Patient states that shortness last tetanus and denies history of diabetes or immunosuppression. Patient states is currently on doxycycline for cellulitis of his lower extremities and denies worsening symptoms including fever chills swelling or redness Occurred: reports: just prior to arrival Severity: reports: mild Pain Location: reports: lower extremity Method of Injury: Yes: direct blow Modifying Factors: improves with: None Loss of Consciousness: no loss of consciousness Associated Symptoms (Fall): denies symptoms Past History - Travel Traveled outside of the country in the last 30 days: No - Past Medical History Allergies/Adverse Reactions: Allergies Allergy/AdvReac Type Severity Reaction Status Date / Time Penicillins Allergy Unknown Verified 09/17/17 20:45 Home Medications: Ambulatory Orders [place] Carbonate [Eskalith -] 600 mg PO BID 06/28/15 Paroxetine HCl [Paxil] 20 mg PO DAILY 06/28/15 Metoprolol Succinate [Toprol XL -] 50 mg PO BID 10/22/15 Rivaroxaban [Xarelto] 20 mg PO DAILY 10/22/15 Acetaminophen [Tylenol .Extra-Strength -] 1,000 mg PO Q6H #100 tablet 08/13/16 Alfuzosin HCl [Alfuzosin HCl ER] 10 mg PO DAILY 06/14/17 Bacitracin - [Bacitracin Topical Ointment -] 1 applic TP BID #1 applic 07/19/17 Clindamycin [Cleocin -] 300 mg PO TID #21 capsule 07/19/17 Mupirocin Ointment [Bactroban 2% Ointment -] 1 applic TP TID PRN #1 tube Cardiac Disorders: Yes (A-fib) CVA: Yes (2014) COPD: No Psychiatric Problems: Yes (DEPRESSION,ANXIETY,BIPOLAR?) - Suicide/Smoking/Psychosocial Hx Smoking History: Never smoked Have you smoked in the past 12 months: No Number of Cigarettes Smoked Daily: 0 Hx Alcohol Use: No Drug/Substance Use Hx: No Substance Use Type: None Patient Lives Alone: Yes Lives with/in: lives alone Review of Systems - Review of Systems Able to Perform ROS?: Yes Constitutional: No: Symptoms Reported Musculoskeletal: No: Symptoms Reported Integumentary: Yes: See HPI Neurological: No: Symptoms reported *Physical Exam - Vital Signs Last Vital Signs Temp Pulse Resp BP Pulse Ox 98.1 F 85 22 120/70 97 09/17/17 20:45 09/17/17 20:45 09/17/17 20:45 09/17/17 20:45 09/17/17 20:45 - Physical Exam General Appearance: Yes: Nourished, Appropriately Dressed. No: Apparent Distress Vascular Pulses: Dorsalis-Pedis (R): 2+ Integumentary: positive: Other (Patient with semi-evulsed skin to the sole of right foot at the base of third digit. Minimal bleeding. Surrounding skin intact.) Medical Decision Making - Medical Decision Making 09/17/17 21:54 Patient with superficial avulsed wound to sole of right foot. Area cleansed with sterile water and peroxide. The area clean and dressed. Patient of her tetanus and will be discharged home with recommendations to wear proper footwear when walking. Keep area clean, dry, and covered. *DC/Admit/Observation/Transfer Diagnosis at time of Disposition: Laceration of right foot Qualifiers: Encounter type: initial encounter Qualified Code(s): S91.311A - Laceration without foreign body, right foot, initial encounter - Discharge Dispostion Disposition: HOME Condition at time of disposition: Good - Referrals Referrals: Davonte Alvarez [Primary Care Provider] - - Patient Instructions Printed Discharge Instructions: DI for Avulsion Laceration (Not Requiring Sutures) Additional Instructions: wear proper footwear when walking. Keep area clean, dry, and covered. If he notices any redness swelling or drainage from the site, please follow-up with your primary care physician and/or return to ED as this may require different antibiotic. Otherwise continue doxycycline as previously prescribed. - Post Discharge Activity
== END 2017-09-17 22:08 | disposition home or self-care (01) ==
LOC: JERFT 20:44
PROC: 3E0234Z Introduction of Serum, Toxoid and Vaccine into Muscle, Percutaneous Approach (ICD-10-PCS; principal; 2017-09-17)
DX: S91.311A Laceration without foreign body, right foot, initial encounter (principal); W45.0XXA Nail entering through skin, initial encounter; Y93.01 Activity, walking, marching and hiking; Y92.89 Other specified places as the place of occurrence of the external cause; Y99.8 Other external cause status; I48.91 Unspecified atrial fibrillation; Z79.01 Long term (current) use of anticoagulants; F41.9 Anxiety disorder, unspecified; F31.9 Bipolar disorder, unspecified; Z86.73 Personal history of transient ischemic attack (TIA), and cerebral infarction without residual deficits
CPT/HCPCS: 90715; 99281-25

== ENCOUNTER 2018-01-24 02:03 | Inpatient (IN) | payer OTHER ==
--- NOTE | 2018-01-24 02:28 | PDOC ---
History of Present Illness <Gale Jacome - Last Filed: 01/24/18 02:28> <Keyona Reed - Last Filed: 01/24/18 04:08> - General Chief Complaint: Nasal Bleeding Stated Complaint: EPISTAXIS Past History - Past Medical History Cardiac Disorders: Yes (A-fib) CVA: Yes (2014) COPD: No Psychiatric Problems: Yes (DEPRESSION,ANXIETY,BIPOLAR?) - Suicide/Smoking/Psychosocial Hx Smoking History: Never smoked Have you smoked in the past 12 months: No Number of Cigarettes Smoked Daily: 0 Information on smoking cessation initiated: No Hx Alcohol Use: No Drug/Substance Use Hx: No Substance Use Type: None <Gale Jacome - Last Filed: 01/24/18 02:28> <Keyona Reed - Last Filed: 01/24/18 04:08> - Past Medical History Allergies/Adverse Reactions: Allergies Allergy/AdvReac Type Severity Reaction Status Date / Time Penicillins Allergy Unknown Verified 01/24/18 02:14 Home Medications: Ambulatory Orders [place] Carbonate [Eskalith -] 600 mg PO BID 06/28/15 Paroxetine HCl [Paxil] 20 mg PO DAILY 06/28/15 Metoprolol Succinate [Toprol XL -] 50 mg PO BID 10/22/15 Rivaroxaban [Xarelto] 20 mg PO DAILY 10/22/15 Acetaminophen [Tylenol .Extra-Strength -] 1,000 mg PO Q6H #100 tablet 08/13/16 Alfuzosin HCl [Alfuzosin HCl ER] 10 mg PO DAILY 06/14/17 Bacitracin - [Bacitracin Topical Ointment -] 1 applic TP BID #1 applic 07/19/17 Mupirocin Ointment [Bactroban 2% Ointment -] 1 applic TP TID PRN #1 tube Doxycycline Hyclate [Vibramycin -] 100 mg PO DAILY 09/17/17 *Physical Exam - Vital Signs Last Vital Signs Temp Pulse Resp BP Pulse Ox 97.9 F 56 L 16 130/91 96 01/24/18 02:07 01/24/18 02:07 01/24/18 02:07 01/24/18 02:07 01/24/18 02:07 <Gale Jacome - Last Filed: 01/24/18 02:28> - Vital Signs Last Vital Signs Temp Pulse Resp BP Pulse Ox 97.9 F 56 L 16 130/91 96 01/24/18 02:07 01/24/18 02:07 01/24/18 02:07 01/24/18 02:07 01/24/18 02:07 <Keyona Reed - Last Filed: 01/24/18 04:08> Medical Decision Making - Medical Decision Making 01/24/18 04:06 Pt seen on arrival. c/o intermittent epistaxis x 4 days. On xarelto for afib. Pt held pressure x15 mins on arrival to ER, still with bleeding from R nare - suspect anterior bleed. Just placed rhino rocket. Will continue to evaluate for bleeding, if it has stopped, will dc home with PMD f/u within 48hrs. <Keyona Reed - Last Filed: 01/24/18 04:08> *DC/Admit/Observation/Transfer <Gale Jacome - Last Filed: 01/24/18 02:28> <Keyona Reed - Last Filed: 01/24/18 04:08> - Referrals Referrals: Davonte Alvarez [Primary Care Provider] - - Patient Instructions - Post Discharge Activity
[2018-01-24] MEDS ORDERED: TRANEXAMIC ACID 1000 MG/10 ML VIAL IVPUSH ONE (04:54)
--- NOTE | 2018-01-24 05:10 | PDOC ---
History of Present Illness - General History Source: Patient Exam Limitations: No Limitations - History of Present Illness Initial Comments: 01/24/18 05:42 The patient is a 62 year old male, with a significant past medical history of Atrial Fibrillation (on Xarelto), who presents to the emergency department with R nasal epistaxis for the past 3 days. Patient reports bleeding has been intermittent however remained constant minutes prior to arrival. Patient presents to the ED for further evaluation. Patient denies chest pain, headache, lightheadedness or dizziness. Patient denies fever, chills, abdominal pain, nausea, vomit, diarrhea or constipation. Patient denies dysuria, frequency, urgency or hematuria. Patient denies sick contacts or recent travel. <Ifrah Arreola - Last Filed: 01/24/18 06:58> <Keyona Reed - Last Filed: 01/24/18 08:08> - General Chief Complaint: Nasal Bleeding Stated Complaint: EPISTAXIS Time Seen by Provider: 01/24/18 02:35 Past History <Ifrah Arreola - Last Filed: 01/24/18 06:58> - Past Medical History Cardiac Disorders: Yes (A-fib) CVA: Yes (2015) COPD: No Psychiatric Problems: Yes (DEPRESSION,ANXIETY,BIPOLAR?) - Suicide/Smoking/Psychosocial Hx Smoking History: Never smoked Have you smoked in the past 12 months: No Number of Cigarettes Smoked Daily: 0 Information on smoking cessation initiated: No Hx Alcohol Use: No Drug/Substance Use Hx: No Substance Use Type: None <Keyona Reed - Last Filed: 01/24/18 08:08> - Past Medical History Allergies/Adverse Reactions: Allergies Allergy/AdvReac Type Severity Reaction Status Date / Time Penicillins Allergy Unknown Verified 01/24/18 02:14 Home Medications: Ambulatory Orders [place] Carbonate [Eskalith -] 600 mg PO BID 06/28/15 Paroxetine HCl [Paxil] 20 mg PO DAILY 06/28/15 Metoprolol Succinate [Toprol XL -] 50 mg PO BID 10/22/15 Rivaroxaban [Xarelto] 20 mg PO DAILY 10/22/15 Acetaminophen [Tylenol .Extra-Strength -] 1,000 mg PO Q6H #100 tablet 08/13/16 Alfuzosin HCl [Alfuzosin HCl ER] 10 mg PO DAILY 06/14/17 Bacitracin - [Bacitracin Topical Ointment -] 1 applic TP BID #1 applic 07/19/17 Mupirocin Ointment [Bactroban 2% Ointment -] 1 applic TP TID PRN #1 tube Doxycycline Hyclate [Vibramycin -] 100 mg PO DAILY 09/17/17 Review of Systems - Review of Systems Able to Perform ROS?: Yes Comments:: 01/24/18 05:42 CONSTITUTIONAL: Absent: fever, no chills, no fatigue EYES: Absent: visual changes ENT: +Epistaxis. Absent: ear pain, no sore throat CARDIOVASCULAR: Absent: chest pain, no palpitations RESPIRATORY: Absent: cough, no SOB GI: Absent: abdominal pain, no nausea, no vomiting, no constipation, no diarrhea GENITOURINARY: Absent: dysuria, no frequency, no hematuria MUSCULOSKELETAL: Absent: back pain, no arthralgia, no myalgia SKIN: Absent: rash NEURO: Absent: headache <Ifrah Arreola - Last Filed: 01/24/18 06:58> *Physical Exam - Vital Signs Last Vital Signs Temp Pulse Resp BP Pulse Ox 97.9 F 56 L 16 130/91 96 01/24/18 02:07 01/24/18 02:07 01/24/18 02:07 01/24/18 02:07 01/24/18 02:07 <Ifrah Arreola - Last Filed: 01/24/18 06:58> - Vital Signs Last Vital Signs Temp Pulse Resp BP Pulse Ox 97.9 F 56 L 16 130/91 96 01/24/18 02:07 01/24/18 02:07 01/24/18 02:07 01/24/18 02:07 01/24/18 02:07 - Physical Exam General Appearance: Yes: Nourished. No: Apparent Distress HEENT: positive: Other (+ bleeding from R nare - unable to visualize the bleeding vessel, +dripping of blood in posterior pharynx) Respiratory/Chest: positive: Lungs Clear, Normal Breath Sounds. 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 NML intact, Fully Oriented, Alert <Keyona Reed - Last Filed: 01/24/18 08:08> ED Treatment Course - LABORATORY CBC & Chemistry Diagram: 01/24/18 06:10 01/24/18 06:10 - Medications Given in the ED: ED Medications Discontinued Medications Generic Name Dose Route Start Last Admin Trade Name Yeimy PRN Reason Stop Dose Admin Tranexamic Acid 1,000 mg 01/24/18 04:54 01/24/18 05:15 Tranexamic Acid - IVPUSH 01/24/18 04:55 1,000 mg ONCE ONE Administration <Ifrah Arreola - Last Filed: 01/24/18 06:58> - LABORATORY CBC & Chemistry Diagram: 01/24/18 06:10 01/24/18 06:10 <Keyona Reed - Last Filed: 01/24/18 08:08> Medical Decision Making - Medical Decision Making 01/24/18 06:08-- Dr. Young (orthodontist physician for ENT) paged. Awaiting call back. 01/24/18 06:29 Paged ENT service. Awaiting call back. 01/24/18 06:50 Call back from ENT. Discussed patient's case. 01/24/18 06:58 Patient hurried out of main ED. Condition 10 called. Security to the ED. Patient was found seated in the ED waiting room. <Ifrah Arreola - Last Filed: 01/24/18 06:58> - Medical Decision Making 01/24/18 05:05 Pt with epistaxis, intermittently x4 days. On eliquis for afib. Feeling dripping in the back of his throat and from the R anterior nare. Attempted anterior rhino rocket but unfortunately it slipped out and pt began to bleed again. Obtained another rhino rocket and placed it slightly deeper in the nare with more air inflation. For now, is holding without further bleeding. Will continue to monitor. If this isn't successful, its more likely that it's a posterior bleed which may require further specialist intervention. Ordered tranexemic acid - if this rhino rocket isn't successful, I will insert txa soaked gauze in the nare. Will also send labs and place IV in the event that he requires admission. As an aside, pt is paranoid. He believes that the reason that his nose is bleeding is that the government has implanted devices all over his home and car which they control and which cause his nose to bleed. No acute SI/HI, but perhaps has underlying psychiatric disorder. 01/24/18 06:03 2nd attempt at anterior rhino rocket was unsuccessful. Attempted 500mg txa on soaked gauze x10 mins. Bleeding slowed down but then he began to bleed again, also with some bleeding in opposite nare and dripping down oroparhynx. Will attempt afrin. ENT paged for assistance with control of posterior epistaxis. 01/24/18 07:31 Afrin attempted, unsuccessful. Spoke to ENT - recommended posterior packing with posterior rhino rocket. Packed nare, currently bleeding seems to be more controlled. Because of the posterior packing, will give abx and admit to tele for monitoring for arrhythmias and hypoxia. 01/24/18 08:[address] Tony - admitted to tele obs. <Keyona Reed - Last Filed: 01/24/18 08:08> *DC/Admit/Observation/Transfer - Attestations Scribe Attestion: 01/24/18 05:43 Documentation prepared by Ifrah Arreola, acting as medical file clerk for Keyona Reed DO <Ifrah Arreola - Last Filed: 01/24/18 06:58> - Discharge Dispostion Admit: Yes <Keyona Reed - Last Filed: 01/24/18 08:08> Diagnosis at time of Disposition: Posterior epistaxis - Referrals Referrals: Davonte Alvarez [Primary Care Provider] - - Patient Instructions - Post Discharge Activity
[2018-01-24] MEDS ORDERED: OXYMETAZOLINE 0.05% NASAL SOLUTION 15 ML BOTTLE NS ONE (05:58)
[2018-01-24 06:15] LABS: BASO % 0.9 % (0-2.0); EOS % 4.6 % (0-4.5); HEMATOCRIT 38.6 % (35.4-49); HEMOGLOBIN 13.2 GM/dL (11.7-16.9); LYMPH % 17.1 % (8-40); MCH 32.7 pg (25.7-33.7); MCHC 34.3 g/dl (32.0-35.9); MEAN CELL VOLUME 95.3 fl (80-96); MEAN PLT VOLUME 9.4 fl (7.5-11.1); MONO % 9.9 % (3.8-10.2); NEUT % 67.5 % (42.8-82.8); PLATELET COUNT 158 K/MM3 (134-434); RBC 4.05 M/mm3 (4.00-5.60); RDW 13.7 % (11.9-15.9); WHITE BLOOD COUNT 11.1 K/mm3 (4.0-10.0)
[2018-01-24 06:38] LABS: INR 1.4 (0.82-1.09); PROTHROMBIN TIME (PATIENT) 15.8 SEC (9.98-11.88)
[2018-01-24 06:39] LABS: ALBUMIN 3.6 g/dl (3.4-5.0); ALK PHOS 90 U/L (45-117); ANION GAP 5 (8-16); BILIRUBIN,TOTAL 0.2 mg/dL (0.2-1.0); BLOOD UREA NITROGEN 45 mg/dL (7-18); CALCIUM 8.3 mg/dL (8.5-10.1); CHLORIDE 111 mmol/L (98-107); CO2 24 mmol/L (21-32); CREATININE 1.1 mg/dL (0.7-1.3); GLUCOSE,RANDOM 121 mg/dL (74-106); POTASSIUM 4.6 mmol/L (3.5-5.1); SGOT/AST 22 U/L (15-37); SGPT/ALT 36 U/L (12-78); SODIUM 140 mmol/L (136-145); TOT PROT 6.8 g/dl (6.4-8.2)
--- NOTE | 2018-01-24 12:41 | HP ---
Admitting History and Physical - Admission Chief Complaint: nose bleed History of Present Illness: HPI This 62 year old male with A fib on xaralto and schizophrenia presented to the ED after 4 days of R nares nose bleeding. He states he blew his nose and since then its been bleeding and overnight worsened. Per repot from ED pt believes the government has been making him sick for the last 20 years and they put something in his home and car to promote his nose bleed. He also tried to elope and was fond again in the ED waiting room. 3 attempt at nasal packing done. Posterior packing and posterior rhino rocket now in place. Bleeding has ceased. ENT has been notified. The patient denies any active dizziness, TYLER, sob, chest pain. He wants 3 gallons of milk for his anxiety and to eat a bag of almonds which he does daily. He has 2 days left of clindamycin for a tooth ache. History Source: Patient Limitations to Obtaining History: No Limitations - Past Medical History Cardiovascular: Yes: AFIB Hepatobiliary: Yes: Other (incontinence) Psych: Yes: Panic, Schizophrenia - Smoking History Smoking history: Never smoked Have you smoked in the past 12 months: No Aproximately how many cigarettes per day: 0 - Alcohol/Substance Use Hx Alcohol Use: No History of Substance Use: reports: None - Social History Usual Living Arrangement: Yes: Alone ADL: Independent Home Medications - Allergies Allergies/Adverse Reactions: Allergies Allergy/AdvReac Type Severity Reaction Status Date / Time Penicillins Allergy Unknown Verified 01/24/18 02:14 - Home Medications Home Medications: Ambulatory Orders Alfuzosin HCl [Uroxatral] 10 mg PO DAILY 01/24/18 Clindamycin [Cleocin -] 300 mg PO QID 01/24/18 [place] Carbonate [Eskalith -] 300 mg PO BID 01/24/18 Metoprolol Succinate [Toprol Xl -] 50 mg PO BID 01/24/18 Paroxetine HCl [Paxil] 20 mg PO DAILY 01/24/18 Rivaroxaban [Xarelto -] 20 mg PO DAILY 01/24/18 Review of Systems - Review of Systems Constitutional: reports: No Symptoms Eyes: reports: No Symptoms HENT: reports: Epistaxis, Toothache Neck: reports: No Symptoms Cardiovascular: reports: No Symptoms Respiratory: reports: No Symptoms Gastrointestinal: reports: No Symptoms Genitourinary: reports: No Symptoms Musculoskeletal: reports: No Symptoms Integumentary: reports: No Symptoms Neurological: reports: No Symptoms Endocrine: reports: No Symptoms Hematology/Lymphatic: reports: Excessive Bleeding Psychiatric: reports: Paranoia Physical Examination Vital Signs: Vital Signs Temperature 98.2 F 01/24/18 07:48 Pulse Rate 102 H 01/24/18 07:48 Respiratory Rate 20 01/24/18 07:48 Blood Pressure 128/89 01/24/18 07:48 O2 Sat by Pulse Oximetry (%) 97 01/24/18 07:48 Constitutional: Yes: Calm Eyes: Yes: Conjunctiva Clear HENT: Yes: Epistaxis (R rhino rocket in place, dried blood) Neck: Yes: WNL Cardiovascular: Yes: Pulse Irregular, S1, S2 Respiratory: Yes: Regular, CTA Bilaterally Gastrointestinal: Yes: Normal Bowel Sounds, Soft Renal/: Yes: WNL Musculoskeletal: Yes: WNL Extremities: Yes: Other (lower ext PVD) Edema: Yes Edema: LLE: 1+, RLE: 1+ Integumentary: Yes: Venous Stasis Changes Neurological: Yes: Alert, Oriented, Cran Nerves II-XII Intact Psychiatric: Yes: Alert, Oriented, Other (agressive at times) Labs: CBC, BMP 01/24/18 06:10 01/24/18 06:10 Problem List - Problems (1) Afib Code(s): I48.91 - UNSPECIFIED ATRIAL FIBRILLATION (2) Psychosis Code(s): F29 - UNSP PSYCHOSIS NOT DUE TO A SUBSTANCE OR KNOWN PHYSIOL COND Assessment/Plan Assessment: 62 year old male admitted with r epistaxis Plan: 1. R epistaxis - Concern for posterior bleed - Maintain rhino rocket - Start augmentin 875 BID x 7days, monitor for anaphylactic response, pt has never taken pcn, just told not to take when child - ENT evaluation pending - Hold xaralto 2. Tooth ache - Complete final 2 days of clindamycin (pt has 7 dys left) 3. A fib - Metoprolol 50mg BID - HOLD xaralto 4. Psych - Continue lithium, paxil Visit type - Emergency Visit Emergency Visit: Yes ED Registration Date: 01/24/18 Care time: The patient presented to the Emergency Department on the above date and was hospitalized for further evaluation of their emergent condition. - New Patient This patient is new to me today: Yes Date on this admission: 01/24/18 - Critical Care Critical Care patient: No Hospitalist Screening - Colonoscopy Questionnaire Colonoscopy Questionnaire: Colonoscopy Questionnaire - Patient: 50 - 75 years old and never had a screening colonoscopy: Unknown History of colon or rectal polyps, or CA: Unknown History of IBD, Crohn's disease or UC: Unknown History of abdominal radiation therapy as a child: Unknown - Relative: 1 with colon or rectal CA, or polyps at age 60 or younger: Unknown Colon or rectal CA diagnosed at age 45 or younger: Unknown Multiple relatives with colon or rectal CA: Unknown - Outcome: Screening Result: Negative Screen
[2018-01-24] MEDS ORDERED: PARoxetine HCL 10 MG TABLET (FP) ONE (13:40)
[2018-01-24] MEDS: AMOX TR/POT CLAV 875MG/125MG TABLETS (FP) PO SCH ×2 (13:42→17:48)
[2018-01-24] MEDS: CLINDAMYCIN HCL 150 MG CAPSULE (FP) PO SCH ×3 (13:43→23:35)
[2018-01-24] MEDS: PARoxetine HCL 20 MG TABLET (FP) PO SCH (13:44)
[2018-01-24] MEDS ORDERED: ACETAMINOPHEN 500 MG TABLET (FP) PO ONE (13:48)
[2018-01-24] MEDS ORDERED: ACETAMINOPHEN 325 MG TABLET (FP) ONE (13:48)
[2018-01-24] MEDS: LITHIUM CARBONATE 300 MG CAPSULE (FP) PO SCH ×2 (14:06→21:31)
[2018-01-24] MEDS ORDERED: ACETAMINOPHEN 325 MG TABLET (FP) PO PRN (21:06)
[2018-01-24 21:12] VITALS: BMI 37.0
[2018-01-24] MEDS ORDERED: MELATONIN 5 MG TABLETS PO ONE (23:30)
[2018-01-25] MEDS ORDERED: traMADol HCL 50 MG TABLET PO ONE (03:19)
[2018-01-25] MEDS ORDERED: LORazepam 2 MG/ML SDV VIAL IVPUSH ONE (03:32)
[2018-01-25] MEDS: CLINDAMYCIN HCL 150 MG CAPSULE (FP) PO SCH ×4 (05:27→22:55)
[2018-01-25 07:12] LABS: BASO % 0.6 % (0-2.0); EOS % 3.3 % (0-4.5); HEMATOCRIT 32.1 % (35.4-49); HEMOGLOBIN 11.1 GM/dL (11.7-16.9); LYMPH % 13.9 % (8-40); MCH 33.1 pg (25.7-33.7); MCHC 34.6 g/dl (32.0-35.9); MEAN CELL VOLUME 95.7 fl (80-96); MEAN PLT VOLUME 9.9 fl (7.5-11.1); MONO % 10.1 % (3.8-10.2); NEUT % 72.1 % (42.8-82.8); PLATELET COUNT 163 K/MM3 (134-434); RBC 3.36 M/mm3 (4.00-5.60); RDW 14.2 % (11.9-15.9); WHITE BLOOD COUNT 14.1 K/mm3 (4.0-10.0)
[2018-01-25 07:20] LABS: INR 1.06 (0.82-1.09)
[2018-01-25 08:14] LABS: CHLORIDE 110 mmol/L (98-107); POTASSIUM 4.2 mmol/L (3.5-5.1); SODIUM 143 mmol/L (136-145)
[2018-01-25 08:18] LABS: ANION GAP 9 (8-16); BLOOD UREA NITROGEN 41 mg/dL (7-18); CALCIUM 8.8 mg/dL (8.5-10.1); CO2 24 mmol/L (21-32); GLUCOSE,RANDOM 96 mg/dL (74-106)
--- NOTE | 2018-01-25 09:06 | CON.PSY ---
Psychiatry Consult Chief Complaint: 62 year old male with 40 yr History of Paranoid Delusional and SChizo Affective Disorder. Patient admitted with Nose bleed. On 1:1. Staff report that he has not slept all night> patient has afexed Delusions of Persecutionfrom FBI on Behalf of Zunilda Shi, who used to be a [facility] DA. Patirntpina vora MD, Dr, [facility]. Symptoms: reports: Delusions, Paranoia - Previous Psychiatric Treatment Outpatient: Less than 6 mos ago Inpatient: 2 or more prior admissions - Previous Substance Abuse Treatment Outpatient: None Inpatient: None - Reason for Previous Treatment Reason for Previous Treatment: Psychotic Episode - Current Medications Current Medications: Active Medications Acetaminophen (Tylenol -) 650 mg PO Q6H PRN PRN Reason: pain levels 4-6 Last Admin: 01/24/18 21:32 Dose: 650 mg Amoxicillin/Clavulanate Potassium (Augmentin - 875mg Tablet) 1 tab PO BID@0800, 1730 [facility] Last Admin: 01/24/18 17:48 Dose: 1 tab Clindamycin HCl (Cleocin -) 300 mg PO Q6HPO [facility] Stop: 01/26/18 00:01 Last Admin: 01/25/18 05:27 Dose: 300 mg [place] Carbonate (Eskalith -) 600 mg PO BID [facility] Last Admin: 01/24/18 21:31 Dose: 600 mg Metoprolol Succinate (Toprol Xl -) 50 mg PO BID [facility] Last Admin: 01/24/18 21:32 Dose: 50 mg Paroxetine HCl (Paxil -) 20 mg PO DAILY [facility] Last Admin: 01/24/18 13:44 Dose: 20 mg - Allergies Allergies: Allergies Allergy/AdvReac Type Severity Reaction Status Date / Time Penicillins Allergy Unknown Verified 01/24/18 02:14 - Current Living Status Usual Living Arrangement: Alone - Current Mental Status Evaluation Appearance: Disheveled Attitude: Guarded - Affect Affect: Constrictive Appropriateness: Appropriate to Content - Mood Mood: Irritable - Speech/Language Expressive: Coherent - Psychomotor Activity Psychomotor Activity: Hyperactive - Thought Process Thought Process: Intact - Thought Content Hallucinations: Absent Delusions: Present Type: Persectory - Self Perception Self Perception: No Impairment - Cognition Attention: Alert Orientation: Time Memory, Immediate Recall: Intact Memory, Short Term: 2/3 Memory, Remote with Promptin/3 - Concentration Serial Sevens Intact: No Simple Calculations Intact: No - Abstraction Proverb Interpretation: Impaired Judgement: Moderately Impaired - Insight Insight: Impaired - Impulse Control Impulse Control: Minimally Impaired - Suicidal Ideation Suicidal Ideation: No - Homicidal Ideation Homicidal Ideation: No Assessment/Plan 1) Add zyprexa for Paranoid delusions. 2) Continue with [place] and paxil. 3) continue with 1:1 4) will follow .
[2018-01-25] MEDS: PARoxetine HCL 20 MG TABLET (FP) PO SCH (09:16)
[2018-01-25] MEDS: AMOX TR/POT CLAV 875MG/125MG TABLETS (FP) PO SCH ×2 (09:16→17:03)
[2018-01-25] MEDS ORDERED: PT OWN MED DRAWER 7, Y5N ONE ×4 (10:12→22:54)
[2018-01-25] MEDS: LITHIUM CARBONATE 300 MG CAPSULE (FP) PO SCH ×2 (11:02→22:52)
[2018-01-25] MEDS: OLANZapine 10 MG TABLET PO SCH ×2 (11:02→22:52)
--- NOTE | 2018-01-25 14:12 | CON.ENT ---
Consult Consult Specialty:: ENT Referred by:: Corry Logan NP Reason for Consultation:: epistaxis - History of Present Illness Chief Complaint: epistaxis History of Present Illness: This 62 year old male with A fib on xaralto and schizophrenia presented to the ED after 4 days of R nares nose bleeding. He states he blew his nose and since then its been bleeding and overnight worsened. Per repot from ED pt believes the government has been making him sick for the last 20 years and they put something in his home and car to promote his nose bleed. He also tried to elope and was fond again in the ED waiting room. 3 attempt at nasal packing done. Posterior packing and posterior rhino rocket now in place. Bleeding has ceased. presently pt is sleeping, mild snoring hx atrial fibrillation, on Xarelto per his aide pt was up most of night, bothered by packing but leaving it in place - History Source History Provided By: Medical Record Limitations to Obtaining History: Clinical Condition - Past Medical History Cardio/Vascular: Yes: AFIB Hepatobiliary: Yes: Other (incontinence) Psych: Yes: Panic, Schizophrenia - Alcohol/Substance Use Hx Alcohol Use: No History of Substance Use: reports: None - Smoking History Smoking history: Never smoked Have you smoked in the past 12 months: No Aproximately how many cigarettes per day: 0 - Social History Usual Living Arrangement: Alone ADL: Independent Home Medications - Allergies Allergies/Adverse Reactions: Allergies Allergy/AdvReac Type Severity Reaction Status Date / Time Penicillins Allergy Unknown Verified 01/24/18 02:14 - Home Medications Home Medications: Ambulatory Orders Alfuzosin HCl [Uroxatral] 10 mg PO DAILY 01/24/18 Clindamycin [Cleocin -] 300 mg PO QID 01/24/18 [place] Carbonate [Eskalith -] 300 mg PO BID 01/24/18 Metoprolol Succinate [Toprol Xl -] 50 mg PO BID 01/24/18 Paroxetine HCl [Paxil] 20 mg PO DAILY 01/24/18 Rivaroxaban [Xarelto -] 20 mg PO DAILY 01/24/18 Physical Exam-ENT Vital Signs: Vital Signs Temperature 98 F 01/25/18 10:00 Pulse Rate 114 H 01/25/18 10:00 Respiratory Rate 20 01/25/18 10:00 Blood Pressure 130/72 01/25/18 10:00 O2 Sat by Pulse Oximetry (%) 96 01/25/18 08:00 Constitutional: Yes: No Distress, Obese, Other (sleeping supine, mild snoring) Head: Yes: WNL Face: Yes: WNL Nose: Yes: Other (right nasal packing in place, no bleeding from either side) Oral/Pharynx: Yes: Other (mouth open (mild snoring), no bleeding) Outer Ear: Yes: WNL Respiratory: Yes: WNL Problem List - Problems (1) Posterior epistaxis Assessment/Plan: controlled with present packing Xarelto is the main risk factor Recommend: continue nasal packing, leavve in place and tape the inflation ports to face suggest packing stay in place for at least 72 hours because of his Xarelto hold Xarelto for 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 epistaxis precautions: food and beverages warm, not hot bathwater warm, not hot Thank you for consultation, Harlan York MD FACS Code(s): R04.0 - EPISTAXIS
--- NOTE | 2018-01-25 16:02 | PN ---
Physical Exam: SUBJECTIVE: Patient seen and examined. No acute bleeding noted. Periods of rapid HR, tolerating lunch OBJECTIVE: Vital Signs Period Temp Pulse Resp BP Sys/Reyes Pulse Ox Last 24 Hr 97.2 F-98.2 F 106-115 20-20 105-134/58-91 96-98 PE Neuro: alert, awake, cn 2-12intact HEENT: R nasal rhino rocket Pulm: CTA anteriorly CV: s1 s2 irregular rhythm Abd: s nt nd +bs Ext: warm, +1 edema Laboratory Results - last 24 hr 01/25/18 01/25/18 01/25/18 05:00 05:00 05:00 WBC 14.1 H RBC 3.36 L Hgb 11.1 L D Hct 32.1 L D MCV 95.7 MCH 33.1 MCHC 34.6 RDW 14.2 Plt Count 163 MPV 9.9 Neutrophils % 72.1 Lymphocytes % 13.9 Monocytes % 10.1 Eosinophils % 3.3 Basophils % 0.6 PT with INR 12.00 H INR 1.06 PTT (Actin FS) 25.0 L Sodium 143 Potassium 4.2 Chloride 110 H Carbon Dioxide 24 Anion Gap 9 BUN 41 H Creatinine 1.0 Random Glucose 96 D Calcium 8.8 Active Medications Generic Name Dose Route Start Last Admin Trade Name Freq PRN Reason Stop Dose Admin Acetaminophen 650 mg 01/24/18 21:06 01/24/18 21:32 Tylenol - PO 650 mg Q6H PRN Administration pain levels 4-6 Amoxicillin/Clavulanate Potassium 1 tab 01/24/18 12:53 01/25/18 09:16 Augmentin - 875mg Tablet PO 1 tab BID@0800,1730 [place] Administration Clindamycin HCl 300 mg 01/24/18 13:00 01/25/18 12:31 Cleocin - PO 01/26/18 00:01 300 mg Q6HPO [place] Administration [place] Carbonate 600 mg 01/24/18 13:00 01/25/18 11:02 Eskalith - PO 600 mg BID [place] Administration Metoprolol Succinate 50 mg 01/24/18 13:00 01/25/18 09:16 Toprol Xl - PO 50 mg BID [place] Administration Olanzapine 10 mg 01/25/18 10:00 01/25/18 11:02 Zyprexa - PO 10 mg BID [place] Administration Paroxetine HCl 20 mg 01/24/18 13:00 01/25/18 09:16 Paxil - PO 20 mg DAILY [facility] Administration Assessment: 62 year old male admitted with r epistaxis Plan: 1. R epistaxis - Maintain rhino rocket for 72 hrs per ENT, bleeding controlled - Continue augmentin 875 BID x 7days (day 2) - Hold xaralto, re start per cardiology - Hgb stable, transfuse <7 2. Tooth ache - Complete final 2 days of clindamycin (pt has 7 tabs left, has been dosed out in JAN) 3. A fib - Metoprolol 50mg BID - HOLD xaralto 4. Psych - Continue lithium, paxil - Started zyprexa per psych Problem List - Problems (1) Afib Code(s): I48.91 - UNSPECIFIED ATRIAL FIBRILLATION (2) Psychosis Code(s): F29 - UNSP PSYCHOSIS NOT DUE TO A SUBSTANCE OR KNOWN PHYSIOL COND Visit type - Emergency Visit Emergency Visit: Yes ED Registration Date: 01/25/18 Care time: The patient presented to the Emergency Department on the above date and was hospitalized for further evaluation of their emergent condition. - New Patient This patient is new to me today: No - Critical Care Critical Care patient: No
[2018-01-26] MEDS: CLINDAMYCIN HCL 150 MG CAPSULE (FP) PO SCH (00:30)
[2018-01-26 07:56] LABS: BASO % 0.7 % (0-2.0); EOS % 3.4 % (0-4.5); HEMATOCRIT 34.2 % (35.4-49); HEMOGLOBIN 11.6 GM/dL (11.7-16.9); MCH 32.4 pg (25.7-33.7); MCHC 33.8 g/dl (32.0-35.9); MEAN PLT VOLUME 9.4 fl (7.5-11.1); MONO % 9.2 % (3.8-10.2); NEUT % 74.7 % (42.8-82.8); PLATELET COUNT 153 K/MM3 (134-434); RBC 3.57 M/mm3 (4.00-5.60); RDW 14.8 % (11.9-15.9); WHITE BLOOD COUNT 13.9 K/mm3 (4.0-10.0)
[2018-01-26 08:14] LABS: CHLORIDE 114 mmol/L (98-107); POTASSIUM 4.3 mmol/L (3.5-5.1); SODIUM 148 mmol/L (136-145)
[2018-01-26] MEDS: AMOX TR/POT CLAV 875MG/125MG TABLETS (FP) PO SCH ×2 (08:14→17:07)
[2018-01-26 08:21] LABS: ANION GAP 9 (8-16); BLOOD UREA NITROGEN 24 mg/dL (7-18); CALCIUM 8.7 mg/dL (8.5-10.1); CO2 25 mmol/L (21-32); GLUCOSE,RANDOM 113 mg/dL (74-106)
[2018-01-26] MEDS ORDERED: PT OWN MED DRAWER 7, Y5N ONE ×2 (09:46→10:14)
[2018-01-26] MEDS: PARoxetine HCL 20 MG TABLET (FP) PO SCH (09:54)
[2018-01-26] MEDS: OLANZapine 10 MG TABLET PO SCH (09:54)
[2018-01-26] MEDS: LITHIUM CARBONATE 300 MG CAPSULE (FP) PO SCH (09:54)
--- NOTE | 2018-01-26 10:16 | CONSULT ---
Admitting History and Physical - Primary Care Physician PCP: Brittny Andrews - Admission History of Present Illness: 62 year old male admitted with r epistaxis. Referred fror a swallowing evaluation because he is coughing. Selected Entries 01/25/18 01/25/18 01/25/18 05:40 10:00 12:17 Breakfast 100% Supper Temperature 98.2 F 98 F 01/25/18 01/25/18 01/25/18 14:00 17:00 19:20 Breakfast Supper 100% Temperature 97.6 F 98.8 F 01/25/18 01/26/18 01/26/18 20:10 01:00 05:00 Breakfast Supper Temperature 97.8 F 97.3 F L 99.6 F 01/26/18 09:00 Breakfast Supper Temperature 98.8 F Laboratory Tests 01/24/18 01/25/18 01/26/18 06:10 05:00 07:30 WBC 11.1 H 14.1 H 13.9 H On reg diet/thin liquids. This is my first consult with Mr. Pryor. History Source: Patient Limitations to Obtaining History: No Limitations, Clinical Condition (Fully oriented and good memory. Paranoid-like statements. 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) - General Mental Status: Alert and Oriented, Awake and Alert, Able to Follow Commands Attention: Intact Ability to Follow Directions: Excellent Head/Neck Control: WFL - Hearing Hearing: Normal Hearing Aide: No With Patient: No Speech Evaluation - Communication Primary Language: BAHRAINI Communication: Yes: Dysarthria (Old cerebellar infarct with articulatory imprecision but also dry mouth.) Oral Expression Ability: Yes: Mild Impairment - Speech Production Able to Make Needs Known: Yes: WNL Intelligibility: Yes: Mildly Impaired - Speech Characteristics Voice Loudness: Normal Voice Pitch: Yes: Normal Voice Phonatory-based Quality: Yes: Normal Nasal Resonance: Normal Articulation: Yes: Imprecise (also oral dryness) - Language/Auditory Comprehension Follows: Yes: 2 Stage Simple Commands - Language/Verbal Expression Able to Respond to Simple Queries: Yes: WNL Able to Communicate Wants and Needs: Yes: WNL Functional Communication Status: Yes: WNL - Swallow Evaluation/Bedside Assessment Current Nutritional Intake: Regular, Thin Liquids Oral Secretions: Yes: Dryness Dentition: Yes: Adequate Facial Symmetry at Rest: Symmetrical Facial Symmetry on Retraction: Symmetrical Sensation: Normal Against Resistance Opening: Normal Against Resistance Closing: Normal Pucker Lips: Normal Smile: Normal Lingual Movement: Symmetric Lingual Speed of Movement: Normal Lingual Movement Strgth Against Opposition: Normal Lingual Movement Characteristics: Normal Velopharyngeal Movement: Normal Laryngeal Movement: Able to Palpate Rate of Intake: WFL Labial Seal: WFL Chewing: WFL (C/o food sticking in mouth due to oral dryness. Washes down all bites of solid food with water.) Oral Prep Time: WFL A-P Transit: WFL Pocketing: Present Bilaterally Coughing/Throat Clear: No Change in Voice: No Recommendations - Speech Evaluation, Impression/Plan Impression: Old cerebellar infarct.Articulatory imprecision ddx-dry mouth/old infarct. Oriented. Paranoid-like statements. Pt was coughing meal time yesterday but improved today. C/o food sticking in mouth due to oral dryness.Sec to meds? Washes down all bites of solid food with water. - Dysphagia Impressions/Plan Dysphagia Impressions: Mild Impairment *Silent aspiration: cannot be R/O at bedside Recommendations: Modified Barium Swallow (as out pt if difficulty noted), Other (Biotene products for oral dryness, before meals. Alternate solids with liquids , and complete meals with liquids) - Recommendations Diet Consistency: Regular Medication Administration: Whole with water Liquids: Thin Liquids
--- NOTE | 2018-01-26 10:20 | PN ---
Progress Note (short form) - Note Progress Note: Subjective: The patient was seen and examined at the bedside, he appears calm, he has no complaints at this time Current Medications Generic Name Dose Route Start Last Admin Trade Name Yeimy PRN Reason Stop Dose Admin Acetaminophen 650 mg 01/24/18 21:06 01/24/18 21:32 Tylenol - PO 650 mg Q6H PRN Administration pain levels 4-6 Amoxicillin/Clavulanate Potassium 1 tab 01/24/18 12:53 01/26/18 08:14 Augmentin - 875mg Tablet PO 1 tab BID@0800,1730 HILL Administration [place] Carbonate 600 mg 01/24/18 13:00 01/26/18 09:54 Eskalith - PO 600 mg BID HILL Administration Metoprolol Succinate 50 mg 01/24/18 13:00 01/26/18 09:54 Toprol Xl - PO 50 mg BID HILL Administration Olanzapine 10 mg 01/25/18 10:00 01/26/18 09:54 Zyprexa - PO 10 mg BID HILL Administration Paroxetine HCl 20 mg 01/24/18 13:00 01/26/18 09:54 Paxil - PO 20 mg DAILY HILL Administration Objective: Vital Signs Period Temp Pulse Resp BP Sys/Reyes Pulse Ox Last 24 Hr 97.3 F-99.6 F 98-115 18-20 99-130/54-72 96-96 Physical Exam: General: NAD, A&Ox3 HEENT: Right nasal rhino rocket in place Lungs: CTA bilaterally Heart: Irregular rate, S1S2 Abd: Soft, non-tender, non-distended. Normoactive bowel sounds Ext: Warm, well-perfused CBCD WBC 13.9 K/mm3 (4.0-10.0) H 01/26/18 07:30 RBC 3.57 M/mm3 (4.00-5.60) L 01/26/18 07:30 Hgb 11.6 GM/dL (11.7-16.9) L 01/26/18 07:30 Hct 34.2 % (35.4-49) L 01/26/18 07:30 MCV 96.0 fl (80-96) 01/26/18 07:30 MCHC 33.8 g/dl (32.0-35.9) 01/26/18 07:30 RDW 14.8 % (11.9-15.9) 01/26/18 07:30 Plt Count 153 K/MM3 (134-434) 01/26/18 07:30 MPV 9.4 fl (7.5-11.1) 01/26/18 07:30 CMP Sodium 148 mmol/L (136-145) H 01/26/18 07:30 Potassium 4.3 mmol/L (3.5-5.1) 01/26/18 07:30 Chloride 114 mmol/L (98-107) H 01/26/18 07:30 Carbon Dioxide 25 mmol/L (21-32) 01/26/18 07:30 Anion Gap 9 (8-16) 01/26/18 07:30 BUN 24 mg/dL (7-18) H D 01/26/18 07:30 Creatinine 1.0 mg/dL (0.7-1.3) 01/26/18 07:30 Creat Clearance w eGFR > 60 (>60) 01/24/18 06:10 Random Glucose 113 mg/dL (74-106) H 01/26/18 07:30 Calcium 8.7 mg/dL (8.5-10.1) 01/26/18 07:30 Total Bilirubin 0.2 mg/dL (0.2-1.0) D 01/24/18 06:10 AST 22 U/L (15-37) 01/24/18 06:10 ALT 36 U/L (12-78) 01/24/18 06:10 Alkaline Phosphatase 90 U/L (45-117) 01/24/18 06:10 Total Protein 6.8 g/dl (6.4-8.2) 01/24/18 06:10 Albumin 3.6 g/dl (3.4-5.0) 01/24/18 06:10 Assessment: This is a 62 year old male with PMHx of a.fib, schizophrenia (on xarelto), who presented to the ED with 4 days of epistaxis Plan: 1) Right epistaxis - Maintain rhino rocket for 72 hours, until 01/27 - Continue prophylactic Augmentin - Continue to hold xarelto, f/u cardiology consult for further recommendations - Hgb stable, continue to monitor 2) A.fib - Continue Toprol XL - Hold Xarelto - F/u cardiology consult 3) Tooth ache - Completed course of Clindamycin 4) Schizophrenia - Paranoid delusions: added Zyprexa - Continue [place] - Continue Paxil - Continue 1:1 - Reevaluation by psych today 5) F/E/N: - Sodium controlled diet - Hypernatremia: continue to trend 6) Prophylaxis: - OOB ambulating - Hold all chemical DVT prophylaxis 2/2 acute epistaxis 7) Dispo: - Requires continued inpatient care CODE STATUS: FULL CODE Visit type - Emergency Visit Emergency Visit: Yes ED Registration Date: 01/25/18 Care time: The patient presented to the Emergency Department on the above date and was hospitalized for further evaluation of their emergent condition. - New Patient This patient is new to me today: Yes Date on this admission: 01/26/18 - Critical Care Critical Care patient: No
--- NOTE | 2018-01-26 12:14 | PN ---
Progress Note (short form) - Note Progress Note: Patient seen for Psych follow up. Case discussed with staff. No reports of any self damaging or suicidal behaviour> patient had an uneventful night. MS: alert, oriented, appears a bit sedated from Zyprexa. Keeps [id number] water. patient is kmown to me for many years, has a history of Fixed paranoid Delusions and apperars refractory to any meds> Patient denies feeling depressed or suicidal. insight and judgment fair. Cognition is intact. Plan: 1) will de/c 1:1 2) Reduce Zyprexa dose. 3) Awaiting serum lithium levels. 4) Patient can be discharged home when Medically stable, He will follow up with his PVT MD.
--- NOTE | 2018-01-26 12:52 | PN ---
Progress Note (short form) - Note Progress Note: ENT no interim bleeding right nasal packing in place, no nasal bleeding Impression epistaxis, controlled with packing platelet dysfunction from Xarelto Recommend continue nasal packing and epistaxis precautions if otherwise stable for discharge, ok from ENT perspective and pt can be seen in office for outpatient follow-up in 1-2 days Problem List - Problems (1) Posterior epistaxis Code(s): R04.0 - EPISTAXIS
--- NOTE | 2018-01-26 13:24 | CON.CARD ---
Consult Consult Specialty:: Cardiology Referred by:: Hospitalist Reason for Consultation:: Anticoagulation assistance - History of Present Illness Chief Complaint: Nose bleed History of Present Illness: Pt was seen in our office only 1x in 06/2016 after a prior admission here, has not followed up since then. 62 year old man with a h/o chronic Afib, Psych disorder, previously not on AC due to his Psych disorder and being unreliable, however was started on coumadin after admission in 2014 with a cerebellar CVA, he then came to the office for f/ up 06/2015 and his AC had been changed to Xarelto at that point by his PMD. He has not followed up since then. Pt currently minimally arousable unable to give a history, only briefly awakens and responds to his name. states his PMDs name, unable to answer if he has seen a different pyridine recovery operator recently. Admitted now with a significant nose bleed that has required nasal packing. Pt has had episodes of Afib with RVR during this admission, currently HR is adequately controlled. 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 Cardio/Vascular: Yes: AFIB Hepatobiliary: Yes: Other (incontinence) Psych: Yes: Panic, Schizophrenia - Alcohol/Substance Use Hx Alcohol Use: No History of Substance Use: reports: None - Smoking History Smoking history: Never smoked Have you smoked in the past 12 months: No Aproximately how many cigarettes per day: 0 - Social History Usual Living Arrangement: Alone ADL: Independent Home Medications - Allergies Allergies/Adverse Reactions: Allergies Allergy/AdvReac Type Severity Reaction Status Date / Time Penicillins Allergy Unknown Verified 01/24/18 02:14 - Home Medications Home Medications: Ambulatory Orders Alfuzosin HCl [Uroxatral] 10 mg PO DAILY 01/24/18 Clindamycin [Cleocin -] 300 mg PO QID 01/24/18 [place] Carbonate [Eskalith -] 300 mg PO BID 01/24/18 Metoprolol Succinate [Toprol Xl -] 50 mg PO BID 01/24/18 Paroxetine HCl [Paxil] 20 mg PO DAILY 01/24/18 Rivaroxaban [Xarelto -] 20 mg PO DAILY 01/24/18 Family Disease History - Family Disease History Family History: Unable to Obtain Review of Systems - Review of Systems Constitutional: denies: No Symptoms, Chills, Diaphoresis, Fever, Lethargy, Loss of Appetite, Malaise, Night Sweats, Unintentional Wgt. Loss, Weakness, Other Eyes: denies: No Symptoms, Blind Spots, Blurred Vision, Double Vision, Eye Pain , Floaters, Photophobia, Recent Change in Vision, Other HENT: reports: Epistaxis. denies: No Symptoms, Difficult Swallowing, Ear Discharge, Ear Pain, Gingival Bleeding, Hearing Loss, Mouth Swelling, Nasal Congestion, Ocular Prosthesis, Throat Pain, Toothache, Ringing in Ears, Other Neck: denies: No Symptoms, Decreased ROM, Lumps, Pain on Movement, Stiffness, Swollen Glands, Tenderness, Other Cardiovascular: denies: No Symptoms, Chest Pain, Edema, Palpitations, Shortness of Breath, Other Respiratory: denies: No Symptoms, Cough, Exercise Intolerance, Hemoptysis, Orthopnea, PND, Snoring, SOB, SOB on Exertion, Wheezing, Other Gastrointestinal: denies: No Symptoms, Abdominal Pain, Bloating, Constipation, Diarrhea, Dysphagia, Indigestion, Melena, Nausea, Rectal Bleeding, Vomiting, Vomiting Blood, Other Genitourinary: denies: No Symptoms, Burning, Discharge, Dysuria, Flank Pain, Frequency, Hematuria, Incontinence, Lesions, Menses, Pain, Testicular Mass, Testicular Pain, Testicular Swelling, Urgency, Vaginal Bleeding, Other Breasts: denies: No Symptoms Reported, See HPI, Breast Implants, Discharge from Nipple, Lumps, Pain, Skin Changes, Other Musculoskeletal: denies: No Symptoms, Back Pain, Crepitus, Decreased ROM, Extremity Pain, Joint Pain, Joint Swelling, Muscle Pain, Muscle Cramps, Muscle Weakness, Other Integumentary: denies: No Symptoms, Blister, Bruising, Change in Color, Eczema, Erythema, Incision, Lesions, Lump, Pallor, Pruritis, Rash, Wound, Other Neurological: denies: No Symptoms, Change in LOC, Change in Speech, Confusion, Dizziness, Headache, Incoordination, Numbness, Parasthesia, Pre-Existing Deficit , Seizure, Syncope, Tremors, Unsteady Gait, Weakness, Other Endocrine: denies: No Symptoms, Excessive Sweating, Flushing, Increased Hunger, Increased Thirst, Intolerance to Cold, Intolerance to Heat, Unexplained Weight Gain, Unexplained Weight Loss, Other Hematology/Lymphatic: denies: No Symptoms, Easily Bruised, Excessive Bleeding, Swollen Glands, Other Psychiatric: reports: Anxiety, Hallucinations, Paranoia - Risk Factors Known Risk Factors: Yes: Hypertension Vital Signs: Vital Signs Temperature 98.8 F 01/26/18 09:00 Pulse Rate 98 H 01/26/18 09:00 Respiratory Rate 18 01/26/18 09:00 Blood Pressure 115/60 01/26/18 09:00 O2 Sat by Pulse Oximetry (%) 96 01/26/18 09:00 Constitutional: Yes: No Distress, Calm Eyes: Yes: Conjunctiva Clear HENT: Yes: Atraumatic, Other (nasal packing in place with dried blood) Respiratory: Yes: Regular, CTA Bilaterally. No: Rales, Rhonchi, Wheezes Gastrointestinal: Yes: Normal Bowel Sounds, Soft. No: Distention, Tenderness Cardiovascular: Yes: Pulse Irregular. No: Regular Rate and Rhythm, Bradycardia , Tachycardia, Gallop, Rub, Varicosities JVD: No Carotid Bruit: No PMI: Non-Displaced Heart Sounds: Yes: S1, S2. No: Split S2, S3, S4, Clicks, Gallop, Rub, Bruit Murmur: No: Systolic Murmur, Diastolic Murmur Edema: No Peripheral Pulses WNL: Yes Peripheral Pulses: 2+ Left Doralis Pedis, 2+ Right Dorsalis Pedis Neurological: No: Alert, Oriented Psychiatric: No: Alert, Oriented - Other Data Labs, Other Data: CBC, BMP 01/26/18 07:30 01/26/18 07:30 INR, PTT INR 1.06 (0.82-1.09) 01/25/18 05:00 ekg not in chart Imaging - Results Chest X-ray: Report Reviewed, Image Reviewed EKG: Report Reviewed, Image Reviewed Other: Report Reviewed, Image Reviewed (tele-Afib, HR currently adequately controlled, occasional episodes of RVR) Assessment/Plan Pt was seen in our office only 1x in 06/2016 after a prior admission here, has not followed up since then. 62 year old man with a h/o chronic Afib, Psych disorder, previously not on AC due to his Psych disorder and being unreliable, however was started on coumadin after admission in 2014 with a cerebellar CVA, he then came to the office for f/ up 06/2015 and his AC had been changed to Xarelto at that point by his PMD. He has not followed up since then. Pt currently minimally arousable unable to give a history, only briefly awakens and responds to his name. states his PMDs name, unable to answer if he has seen a different pyridine recovery operator recently. Admitted with a significant nose bleed that has required nasal packing Atrial fibrillation-chronic, HR adequately controlled currently, episodes of RVR during this admission, may have correlated with periods of agitation -pt admitted with significant nose bleed requiring packing, ENT note appreciated , request to hold Xarelto as long as felt safe to do so -cont Toprol XL 50mg bid -In terms of anticoagulation, this is a difficult situation, he has had a cerebellar CVA in the past when he was not on AC. He now has had a significant nose bleed. He does not follow with me as an outpatient, as far as I can tell he only follows with his PMD. He is unable to have a conversation with me currently therefore I have no way to assess how reliable he is other than what I have seen in the past which is that he did not follow in the office as he was recommended to do after his only visit 06/2016. -Currently it appears that the risk of continued nose bleeding is significant and Xarelto needs to be held for this. In my opinion it makes sense to hold full AC for now and have him follow up with his PMD within 1 week. His PMD seems to know him the best and can better assess the safety of AC going forward for him. Currently unable to have this discussion with Mr. Pryor as he is not responding appropriately due to his Psych disorder and psych meds. -Additionally the decision for stopping or continuing full AC should be between Mr. Pryor and the physician that will be following him closely as an outpatient which is his PMD. -If Mr. Pryor agrees he can be seen in our office early next week as well. -No additional inpatient cardiac work up is needed at this point, his HR has been overall adequately controlled, can dc tele
--- NOTE | 2018-01-26 17:03 | DS ---
Physical Exam: SUBJECTIVE: Patient seen and examined OBJECTIVE: Vital Signs Period Temp Pulse Resp BP Sys/Reyes Pulse Ox Last 24 Hr 97.3 F-99.6 F 84-102 18-20 99-128/54-81 96-96 PHYSICAL EXAM GENERAL: The patient is awake, alert, and fully oriented, in no acute distress. HEAD: Normal with no signs of trauma. EYES: PERRL, extraocular movements intact, sclera anicteric, conjunctiva clear. ENT: Ears normal, nares patent, oropharynx clear without exudates, moist mucous membranes. NECK: Trachea midline, full range of motion, supple. LUNGS: Breath sounds equal, clear to auscultation bilaterally, no wheezes, no crackles, no accessory muscle use. HEART: Regular rate and rhythm, S1, S2 without murmur, rub or gallop. ABDOMEN: Soft, nontender, nondistended, normoactive bowel sounds, no guarding, no rebound, no hepatosplenomegaly, no masses. EXTREMITIES: 2+ pulses, warm, well-perfused, no edema. NEUROLOGICAL: Cranial nerves II through XII grossly intact. Normal speech, gait not observed. PSYCH: Normal mood, normal affect. SKIN: Warm, dry, normal turgor, no rashes or lesions noted. LABS Laboratory Results - last 24 hr 01/25/18 01/26/18 01/26/18 05:00 07:30 07:30 WBC 13.9 H RBC 3.57 L Hgb 11.6 L Hct 34.2 L MCV 96.0 MCH 32.4 MCHC 33.8 RDW 14.8 Plt Count 153 MPV 9.4 Neutrophils % 74.7 Lymphocytes % 12.0 Monocytes % 9.2 Eosinophils % 3.4 Basophils % 0.7 Sodium 148 H Potassium 4.3 Chloride 114 H Carbon Dioxide 25 Anion Gap 9 BUN 24 H D Creatinine 1.0 Random Glucose 113 H Calcium 8.7 [place] 0.7 HOSPITAL COURSE: Date of Admission:01/25/18 Date of Discharge: 01/26/18 Discharge Summary Reason For Visit: POSTERIOR EPISTAXIS Current Active Problems Posterior epistaxis (Acute) Condition: Improved - Instructions Diet, Activity, Other Instructions: Please return to the ED with new, persistent, or worsening symptoms. Please follow-up with providers as indicated. New Medications: 1) Augmentin (antibiotic): Take your first dose on 01/27. You MUST complete the full course of antibiotics. 2) Zyprexa Referrals: Davonte Alvarez [Primary Care Provider] - (Please follow-up with your primary care provider within 1-2 days to discuss when to restart your Xarelto) Harlan York MD [Staff Physician] - (Please follow-up with ENT within 1-2 days for removal of your right nasal packing) Disposition: HOME - Home Medications Comprehensive Discharge Medication List: Ambulatory Orders Metoprolol Succinate [Toprol XL -] 50 mg PO BID 01/24/18 Paroxetine HCl [Paxil] 20 mg PO DAILY 01/24/18 Amox-Tr/K Cl [Augmentin 875-125mg Tablet -] 1 tab PO BID@0800,1730 #8 tablet [place] Carbonate [Eskalith -] 600 mg PO BID #0 capsule 01/26/18 Olanzapine [Zyprexa -] 7.5 mg PO HS #30 tablet 01/26/18
[2018-01-26 20:12] VITALS: BP 110/40; PULSE 92; TEMP 98.5
[2018-01-26] MEDS ORDERED: OLANZapine 7.5 MG TABLET PO SCH (22:00)
[2018-01-26] MEDS ORDERED: OLANZapine 5 MG TABLET PO SCH (22:00)
== END 2018-01-26 19:52 | disposition home or self-care (01) | DRG 151 ==
LOC: JER 02:03 → UNDOADMOB 08:08 → JERBED 08:08 → J4W 19:45 → INTOOBSV 01-25 15:13 → OBSVTOIN 01-25 15:13 → UNDODISIN 01-26 12:04
PROVIDERS: ADMIT Internal Medicine; ATTEND Registered Nurse
PROC: 2Y41X5Z Packing of Nasal Region using Packing Material (ICD-10-PCS; principal; 2018-01-24)
DX: R04.0 Epistaxis (principal); E87.0 Hyperosmolality and hypernatremia; I48.91 Unspecified atrial fibrillation; Z86.73 Personal history of transient ischemic attack (TIA), and cerebral infarction without residual deficits; F41.8 Other specified anxiety disorders; F20.9 Schizophrenia, unspecified; K08.89 Other specified disorders of teeth and supporting structures
CPT/HCPCS: 36415; 80048; 80053; 80178; 85025; 85610; 85730; 86850; 86900; 86901; 99284-25; G0378

== ENCOUNTER 2018-03-09 19:38 | Observation (INO) | payer OTHER ==
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
[2018-03-09 19:52] VITALS: BMI 38.1
[2018-03-09 22:34] LABS: BASO % 0.7 % (0-2.0); EOS % 5.8 % (0-4.5); HEMATOCRIT 40.3 % (35.4-49); HEMOGLOBIN 13.6 GM/dL (11.7-16.9); LYMPH % 12.6 % (8-40); MCH 32.8 pg (25.7-33.7); MCHC 33.8 g/dl (32.0-35.9); MEAN PLT VOLUME 9.6 fl (7.5-11.1); MONO % 11.6 % (3.8-10.2); NEUT % 69.3 % (42.8-82.8); PLATELET COUNT 163 K/MM3 (134-434); RBC 4.16 M/mm3 (4.00-5.60); RDW 13.8 % (11.9-15.9)
--- NOTE | 2018-03-09 23:11 | PDOC ---
History of Present Illness - General History Source: Patient, Old Records - History of Present Illness Initial Comments: 03/09/18 23:22 The patient is a 62 year old male, with a significant past medical history of schizophrenia, paranoid delusional disorder and AFIB, CVA (2015), reducible umbilical hernia, who presents to the emergency department complaining of body stiffness for years that he wakes up in the morning. He notes that he has been unable to break up this tension due to taking a drug called Zyprexa, which he believes someone slipped into his drink. Patient notes that he lives alone. Patient was here at the end of January of this year and was admitted for nose bleed on Xarelto, at the time he gave a story of hoe the FBI is coming after him. He things the FBI is the one that is drugging him with Zyprexa, which causes him to wake up and drink two gallons of milk and exercise. Today he told the same story as last time. Currently on [place]. The patient denies chest pain, shortness of breath, headache or dizziness. Denies fever, chills, nausea, vomiting, diarrhea and constipation. Denies dysuria, frequency, urgency and hematuria. Allergies: Penicillins Past surgical history: None reported Social History: No alcohol, tobacco or drug use reported <Eligio Ferreira - Last Filed: 03/10/18 00:41> <Kay Dunn - Last Filed: 03/10/18 02:22> - General Chief Complaint: Psychiatric Stated Complaint: TENSION Time Seen by Provider: 03/09/18 19:42 Past History <Eligio Ferreira - Last Filed: 03/10/18 00:41> - Past Medical History Cardiac Disorders: Yes (A-fib) CVA: Yes (2014) COPD: No Psychiatric Problems: Yes (DEPRESSION,ANXIETY,BIPOLAR?) - Suicide/Smoking/Psychosocial Hx Smoking History: Never smoked Have you smoked in the past 12 months: No Number of Cigarettes Smoked Daily: 0 Information on smoking cessation initiated: No Hx Alcohol Use: No Drug/Substance Use Hx: No Substance Use Type: None <Kay Dunn - Last Filed: 03/10/18 02:22> - Past Medical History Allergies/Adverse Reactions: Allergies Allergy/AdvReac Type Severity Reaction Status Date / Time Penicillins Allergy Unknown Verified 03/09/18 19:52 Home Medications: Ambulatory Orders Metoprolol Succinate [Toprol XL -] 50 mg PO BID 01/24/18 Paroxetine HCl [Paxil] 20 mg PO DAILY 01/24/18 Amox-Tr/K Cl [Augmentin 875-125mg Tablet -] 1 tab PO BID@0800,1730 #8 tablet [place] Carbonate [Eskalith -] 600 mg PO BID #0 capsule 01/26/18 Olanzapine [Zyprexa -] 7.5 mg PO HS #30 tablet 01/26/18 Review of Systems - Review of Systems Able to Perform ROS?: Yes Comments:: 03/09/18 23:22 GENERAL/CONSTITUTIONAL: (+) Body Stiffness. No fever or chills. No weakness. HEAD, EYES, EARS, NOSE AND THROAT: No change in vision. No ear pain or discharge. No sore throat. GASTROINTESTINAL: No nausea, vomiting, diarrhea or constipation. GENITOURINARY: No dysuria, frequency, or change in urination. CARDIOVASCULAR: No chest pain or shortness of breath. RESPIRATORY: No cough, wheezing, or hemoptysis. MUSCULOSKELETAL: No joint or muscle swelling or pain. No neck or back pain. SKIN: No rash NEUROLOGIC: No headache, vertigo, loss of consciousness, or change in strength/ sensation. ENDOCRINE: No increased thirst. No abnormal weight change. HEMATOLOGIC/LYMPHATIC: No anemia, easy bleeding, or history of blood clots. ALLERGIC/IMMUNOLOGIC: No hives or skin allergy. <Eligio Ferreira - Last Filed: 03/10/18 00:41> *Physical Exam - Vital Signs Last Vital Signs Temp Pulse Resp BP Pulse Ox 99.2 F 105 H 21 127/66 98 03/09/18 19:45 03/09/18 19:45 03/09/18 19:45 03/09/18 19:45 03/09/18 19:45 - Physical Exam Comments: 03/09/18 23:22 Constitutional: Awake, alert, oriented. No acute distress. Head: Normocephalic. Atraumatic Eyes: PERRL. EOMI. Conjunctivae are not pale. ENT: Mucous membranes are moist and intact. Posterior pharynx without exudates or erythema. Uvula midline. Neck: Supple. Full ROM. No lymphadenopathy. Cardiovascular: Regular rate. Regular rhythm. S1, S2 regular. Distal pulses are 2+ and symmetric. Pulmonary/Chest: No evidence of respiratory distress. Clear to auscultation bilaterally No wheezing, rales or rhonchi. Abdominal: Soft and non-distended. There is no tenderness. No rebound, guarding or rigidity. No organomegaly. No palpable masses. Good bowel sounds. Back: No CVA tenderness. Musculoskeletal: No edema. No cyanosis. No clubbing. Full range of motion in all extremities. Nocalf tenderness. Radial/pedal pulses are intact and 2+ bilaterally Skin: Skin is warm and dry. No petechiae. No purpura. Neurological: Alert and oriented to person, place, and time. Cranial nerves II -XII are grossly intact. Normal speech. Strength is grossly symmetric. No sensory deficits. Psychiatric: Good eye contact. Normal interaction, affect and behavior. <Eligio Ferreira - Last Filed: 03/10/18 00:41> - Vital Signs Last Vital Signs Temp Pulse Resp BP Pulse Ox 99.2 F 105 H 21 127/66 98 03/09/18 19:45 03/09/18 19:45 03/09/18 19:45 03/09/18 19:45 03/09/18 19:45 <Kay Dunn - Last Filed: 03/10/18 02:22> Heart Score/ECG Review - ECG Intrepretation Comment:: 03/10/18 00:46 afib at 109, nl axis, no acute st/t wave findings <Kay Dunn - Last Filed: 03/10/18 02:22> ED Treatment Course - LABORATORY CBC & Chemistry Diagram: 03/09/18 22:17 03/09/18 22:17 - ADDITIONAL ORDERS Additional order review: 03/09/18 22:17 RBC 4.16 MCV 97.0 H MCHC 33.8 RDW 13.8 MPV 9.6 Neutrophils % 69.3 Lymphocytes % 12.6 Monocytes % 11.6 H Eosinophils % 5.8 H Basophils % 0.7 <Eligio Ferreira - Last Filed: 03/10/18 00:41> - LABORATORY CBC & Chemistry Diagram: 03/09/18 22:17 03/09/18 22:17 - ADDITIONAL ORDERS Additional order review: 03/09/18 22:17 RBC 4.16 MCV 97.0 H MCHC 33.8 RDW 13.8 MPV 9.6 Neutrophils % 69.3 Lymphocytes % 12.6 Monocytes % 11.6 H Eosinophils % 5.8 H Basophils % 0.7 <Kay Dunn - Last Filed: 03/10/18 02:22> Medical Decision Making - Medical Decision Making 03/09/18 23:21 Dr. Marie was called regarding the patient at 11:21pm A message was left. Julius Guzmán was called regarding the patient at 11:23pm A message was left. <Eligio Ferreira - Last Filed: 03/10/18 00:41> - Medical Decision Making 03/09/18 23:24 a/p: 62yo male with hx of delusional disorder and schizophrenia with feeling of his body being "tight" all over and feeling tension all over -states this started after he took zyprexa here in the Ed -states he needs to drink 2 gallons of milk and do his exercises to relieve the tension -states he believes the FBI are breaking into his house and sprinkling zyprexa on his food and putting it in his water -pt delusional with flight of ideas -will need 1:1 -will need psych eval -consult placed to dr. marie -will check labs -will monitor -pt placed in bed 8 03/09/18 23:26 pt became very agitated, yellowing at the staff -security called the bedside and the patient calmed down -call placed to psych for eval of the patient. 03/10/18 00:13 case discussed with Julius Guzmán, [employer] recommends oral zyprexa tonight or zydis can use IM haldol will see patient in consult in the AM 03/10/18 02:22 pt pending psych eval pt signed out to the oncoming ED physician pending psych eval and labs <Kay Dunn - Last Filed: 03/10/18 02:22> *DC/Admit/Observation/Transfer - Attestations Scribe Attestion: 03/09/18 23:22 Documentation prepared by Eligio Ferreira, acting as medical collections specialist for Kay Dunn DO <Eligio Ferreira - Last Filed: 03/10/18 00:41> - Attestations Physician Attestion: 03/10/18 00:15 I, Dr. Kay Dunn DO, attest that this document has been prepared under my direction and personally reviewed by me in its entirety. I further attest, that it accurately reflects all work, treatment, procedures and medical decision -making performed by me. <Kay Dunn - Last Filed: 03/10/18 02:22> Diagnosis at time of Disposition: Psychosis, Delusional disorder - Discharge Dispostion Condition at time of disposition: Stable - Referrals Referrals: Davonte Alvarez [Primary Care Provider] - - Patient Instructions - Post Discharge Activity
[2018-03-09 23:15] LABS: ALBUMIN 3.8 g/dl (3.4-5.0); ANION GAP 11 (8-16); BILIRUBIN,TOTAL 0.4 mg/dL (0.2-1.0); BLOOD UREA NITROGEN 43 mg/dL (7-18); CALCIUM 8.7 mg/dL (8.5-10.1); CHLORIDE 108 mmol/L (98-107); CO2 21 mmol/L (21-32); CREATININE 1.2 mg/dL (0.7-1.3); GLUCOSE,RANDOM 109 mg/dL (74-106); POTASSIUM 4.4 mmol/L (3.5-5.1); SGOT/AST 23 U/L (15-37); SGPT/ALT 36 U/L (12-78); SODIUM 140 mmol/L (136-145)
[2018-03-09 23:27] LABS: ALK PHOS 89 U/L (45-117)
[2018-03-09 23:43] LABS: URINE APPEARANCE CLEAR; URINE BILIRUBIN NEGATIVE (<2.0 mg/dL); URINE COLOR STRAW; URINE GLUCOSE (UA) NEGATIVE (NEGATIVE); URINE KETONE NEGATIVE (NEGATIVE); URINE LEUK ESTERASE NEGATIVE (NEGATIVE); URINE NITRITE NEGATIVE (NEGATIVE); URINE PROTEIN NEGATIVE (NEGATIVE); URINE UROBILINOGEN NEGATIVE mg/dL (0.2-1.0)
[2018-03-09 23:58] LABS: COCAINE, UR NEGATIVE ng/ml (CUTOFF=300); METHADONE, UR NEGATIVE ng/ml (CUTOFF=300); OPIATES, URI NEGATIVE ng/ml (CUTOFF=300); PHENCYCLIDINE,URINE NEGATIVE ng/ml (CUTOFF=25); URINE AMPHETAMINES NEGATIVE ng/ml (CUTOFF=500); URINE BARBITURATES NEGATIVE ng/ml (CUTOFF=200); URINE BENZODIAZEPINES NEGATIVE ng/ml (CUTOFF=200)
[2018-03-10] MEDS ORDERED: METOPROLOL TARTRATE 50 MG TABLET (FP) PO ONE (00:46)
[2018-03-10] MEDS ORDERED: METOPROLOL TARTRATE 50 MG TABLET (FP) ONE (02:04)
--- NOTE | 2018-03-10 08:51 | PDOC ---
*Physical Exam - Vital Signs Last Vital Signs Temp Pulse Resp BP Pulse Ox 98 F 86 18 129/75 98 03/10/18 07:25 03/10/18 07:25 03/10/18 07:25 03/10/18 07:25 03/10/18 07:25 ED Treatment Course - LABORATORY CBC & Chemistry Diagram: 03/09/18 22:17 03/09/18 22:17 - ADDITIONAL ORDERS Additional order review: Laboratory Results 03/09/18 03/09/18 03/09/18 23:27 23:27 22:17 Sodium 140 Potassium 4.4 Chloride 108 H Carbon Dioxide 21 Anion Gap 11 BUN 43 H D Creatinine 1.2 Creat Clearance w eGFR > 60 Random Glucose 109 H Calcium 8.7 Total Bilirubin 0.4 D AST 23 ALT 36 Alkaline Phosphatase 89 Total Protein 7.0 Albumin 3.8 Urine Color Straw Urine Appearance Clear Urine pH 6.0 Ur Specific [place] 1.009 Urine Protein Negative Urine Glucose (UA) Negative Urine Ketones Negative Urine Blood Negative Urine Nitrite Negative Urine Bilirubin Negative Urine Urobilinogen Negative Ur Leukocyte Esterase Negative Digoxin 0.0886 L Opiates Screen Negative Methadone Screen Negative Barbiturate Screen Negative Phencyclidine Screen Negative Ur Amphetamines Screen Negative MDMA (Ecstasy) Screen Negative Benzodiazepines Screen Negative Cocaine Screen Negative U Marijuana (THC) Screen Negative 03/09/18 22:17 RBC 4.16 MCV 97.0 H MCHC 33.8 RDW 13.8 MPV 9.6 Neutrophils % 69.3 Lymphocytes % 12.6 Monocytes % 11.6 H Eosinophils % 5.8 H Basophils % 0.7 - Medications Given in the ED: ED Medications Discontinued Medications Generic Name Dose Route Start Last Admin Trade Name Yuanq PRN Reason Stop Dose Admin Metoprolol Tartrate 50 mg 03/10/18 00:46 03/10/18 01:30 Lopressor - PO 03/10/18 00:47 50 mg ONCE ONE Administration Medical Decision Making - Medical Decision Making 03/10/18 12:05 Patient with delusional psychosis seen and evaluated in the emergency department overnight pending psychiatric evaluation Psychiatric evaluation has been completed patient determined not to be acute risk to himself or others safe for outpatient follow-up. We'll have our social media marketing specialist see and evaluate patient to arrange as safe and outpatient follow-up plan as possible Patient placed on short stay observation *DC/Admit/Observation/Transfer Diagnosis at time of Disposition: Delusional disorder - Discharge Dispostion Disposition: HOME Condition at time of disposition: Stable - Prescriptions - Referrals - Patient Instructions - Post Discharge Activity
--- NOTE | 2018-03-10 09:03 | PN ---
Mental Health Exam - Mental Status Exam Alert and Oriented to: Time, Place, Person Cognitive Function: Good Patient Appearance: Unkempt Mood: Apathetic, Suspicious, Apprehensive, Expansive Affect: Flat Patient Behavior: Guarded, Suspicious, Cooperative Speech Pattern: Rambling, Tangential Voice Loudness: Mildly Loud Thought Process: Circumstantial, Loose Associations, Tangential, Disorganized Thought Disorder: Delusional (web of delusions that [place], is out to get him. ) Hallucinations: Denies Suicidal Ideation: Denies, No Plan Homicidal Ideation: Denies, No Plan Insight/Judgement: Fair Sleep: Poorly Appetite: Good (I drink milk all day. ) Muscle strength/Tone: Normal Gait/Station: Deferred Additional Comments: This is 62 male non adherent with psych meds zyprexia at home. Followed by dr Arita, primary MD. Client endorsed being inpatient in past at [facility] for 1 mnth 20 yrs ago. Last here a month ago, seen by dr Marie. Client is agreeable to re- start on antisychotic Abilify 5mg a day, that may be titrated in community. Will benifit from Psychiatrist in community to titrate, and long acting antipsychotic. In need of VNS/ services in the community/ Case discussed with Dr Rogers.
--- NOTE | 2018-03-10 09:27 | HP ---
CHIEF COMPLAINT: generalized tension PCP: Dr. Arita follow up appointment with Dr. Arita on March 13 @ 12:20pm - bring your insurance information HISTORY OF PRESENT ILLNESS: Patient is a 62 year old male with a significant past medical history of schizophrenia, paranoid delusional disorder, chronic atrial fibrillation (on Xarelto), CVA (2015) and reducible umbilical hernia. Patient presented to the ED with c/o of body stiffness. He states that when he wakes up in the morning, he has stiff joints and states that this is due to the medication Zyprexa that he takes at bedtime. Patient is convinced that the FBI is following him and putting medications into his drinks and food. He believes that they are in his home when he is away, The patient denies chest pain, shortness of breath, headache or dizziness. On exam he is calm, cooperative and in no acute distress. Seen by psych who recommends Abilify 5mg daily with close community follow up. Appointment made by narrative writer for patient to see Dr. Arita on March 13 @ 12:20 pm. Patient is currently refusing outpatient psychiatrist appointment. He agrees to see Dr. Alvarez on Tuesday for a psych referral. Patient recently here last January/2017 for a nose bleed, his Xarelto was held at that time. On exam, no further nose bleeds or other signs of bleeding. Patient states he has started Xarelto and last took it yesterday. Recent Travel: Family History: Allergies Penicillins Allergy (Unknown, Verified 03/09/18 19:52) HOME MEDICATIONS: Home Medications Medication Instructions Recorded Metoprolol Succinate [Toprol XL -] 50 mg PO BID 01/24/18 Paroxetine HCl [Paxil] 20 mg PO DAILY 01/24/18 [place] Carbonate [Eskalith -] 600 mg PO BID #0 capsule 01/26/18 Olanzapine [Zyprexa -] 7.5 mg PO HS #30 tablet 01/26/18 Docusate Sodium [Dulcolax Stool 100 mg PO DAILY 03/10/18 Softener] Rivaroxaban [Xarelto -] 20 mg PO DAILY 03/10/18 PHYSICAL EXAMINATION Vital Signs - 24 hr 03/09/18 03/10/18 03/10/18 19:45 03:29 06:20 Temperature 99.2 F 98 F Pulse Rate 105 H Pulse Rate [ 108 H 80 Apical] Respiratory 21 18 18 Rate Blood Pressure 127/66 Blood Pressure 123/87 124/78 [Right Arm] O2 Sat by Pulse 98 95 99 Oximetry (%) 03/10/18 03/10/18 07:03 07:25 Temperature 98 F Pulse Rate Pulse Rate [ 92 H 86 Apical] Respiratory 18 18 Rate Blood Pressure Blood Pressure 135/86 129/75 [Right Arm] O2 Sat by Pulse 96 98 Oximetry (%) GENERAL: Awake, alert, and fully oriented, in no acute distress, can hold conversation. Cooperative. HEAD: Normal with no signs of trauma. EYES: Pupils equal, round and reactive to light, extraocular movements intact, sclera anicteric, conjunctiva clear. No lid lag. EARS, NOSE, THROAT: Ears normal, nares patent, oropharynx clear without exudates. Moist mucous membranes. NECK: Normal range of motion, supple without lymphadenopathy, JVD, or masses. LUNGS: Breath sounds equal, clear to auscultation bilaterally. No wheezes, and no crackles. No accessory muscle use. ABDOMEN: Soft, nontender, not distended, normoactive bowel sounds, no guarding, no rebound, no masses. No hepatomegaly or splenomegaly. MUSCULOSKELETAL: Normal range of motion at all joints. No bony deformities or tenderness. No CVA tenderness. UPPER EXTREMITIES: 2+ pulses, warm, well-perfused. No cyanosis. No clubbing. No peripheral edema. LOWER EXTREMITIES: Bilateral lower ext, with trace edema PSYCHIATRIC: Cooperative. paranoid at times. SKIN: Warm, dry, normal turgor, no rashes or lesions noted, normal capillary refill. Laboratory Results - last 24 hr 03/09/18 03/09/18 03/09/18 22:17 22:17 23:27 WBC 10.0 RBC 4.16 Hgb 13.6 D Hct 40.3 D MCV 97.0 H MCH 32.8 MCHC 33.8 RDW 13.8 Plt Count 163 MPV 9.6 Neutrophils % 69.3 Lymphocytes % 12.6 Monocytes % 11.6 H Eosinophils % 5.8 H Basophils % 0.7 Sodium 140 Potassium 4.4 Chloride 108 H Carbon Dioxide 21 Anion Gap 11 BUN 43 H D Creatinine 1.2 Creat Clearance w eGFR > 60 Random Glucose 109 H Calcium 8.7 Total Bilirubin 0.4 D AST 23 ALT 36 Alkaline Phosphatase 89 Total Protein 7.0 Albumin 3.8 Urine Color Urine Appearance Urine pH Ur Specific [place] Urine Protein Urine Glucose (UA) Urine Ketones Urine Blood Urine Nitrite Urine Bilirubin Urine Urobilinogen Ur Leukocyte Esterase Digoxin 0.0886 L Opiates Screen Negative Methadone Screen Negative Barbiturate Screen Negative Phencyclidine Screen Negative Ur Amphetamines Screen Negative MDMA (Ecstasy) Screen Negative Benzodiazepines Screen Negative Cocaine Screen Negative U Marijuana (THC) Screen Negative 03/09/18 23:27 WBC RBC Hgb Hct MCV MCH MCHC RDW Plt Count MPV Neutrophils % Lymphocytes % Monocytes % Eosinophils % Basophils % Sodium Potassium Chloride Carbon Dioxide Anion Gap BUN Creatinine Creat Clearance w eGFR Random Glucose Calcium Total Bilirubin AST ALT Alkaline Phosphatase Total Protein Albumin Urine Color Straw Urine Appearance Clear Urine pH 6.0 Ur Specific [place] 1.009 Urine Protein Negative Urine Glucose (UA) Negative Urine Ketones Negative Urine Blood Negative Urine Nitrite Negative Urine Bilirubin Negative Urine Urobilinogen Negative Ur Leukocyte Esterase Negative Digoxin Opiates Screen Methadone Screen Barbiturate Screen Phencyclidine Screen Ur Amphetamines Screen MDMA (Ecstasy) Screen Benzodiazepines Screen Cocaine Screen U Marijuana (THC) Screen ASSESSMENT/PLAN: Patient is a 62 year old male with a significant past medical history of schizophrenia, paranoid delusional disorder, chronic atrial fibrillation (on Xarelto), CVA (2014) and reducible umbilical hernia. Patient presented to the ED with c/o of body stiffness. He states that when he wakes up in the morning, he has stiff joints and states that this is due to the medication Zyprexa that he takes at bedtime. Patient is convinced that the FBI is following him and putting medications into his drinks and food. He believes that they are in his home when he is away, The patient denies chest pain, shortness of breath, headache or dizziness. Denies any homicidal or suicidal ideation. On exam he is calm, cooperative and in no acute distress. Seen by psych who recommends Abilify 5mg daily with close community follow up. Appointment made by narrative writer for patient to see Dr. Arita on March 13 @ 12:20 pm. Patient is currently refusing outpatient psychiatrist appointment. He agrees to see Dr. Alvarez on Tuesday for a psych referral. Patient recently here last January/2017 for a nose bleed, his Xarelto was held at that time. On exam, no further nose bleeds or other signs of bleeding. Patient states he has started Xarelto and last took it yesterday. Psyche: Delusion/flight of ideas/schizophrenia/paranoid delusional disorder, chronic Denies any homicidal or suicidal ideation. Patient refusing Zyprexa @ hs I spoke to Dr. Arielle Madrid who recommends that patient stop Zyprexa and start Abilify 5mg Oupt follow with psychiatrist recommended Patient is refusing VNS followup but agrees to see Dr. Alvarez (PCP), appointment made for March 13 @ 12:20pm Continue Vened[place]ia, Paxil 20mg daily, Abilify 5mg Cleared by psyche for discharge home Cardiology Chronic atrial fibrillation (on Xarelto) Metoprolol Neuro: CVA (2014) On Xarelto F.E.N. Fluids: PO adequate Electrolytes: wnl Nutrition: regular diet Prophy: DVT: on Xarelto GI: deferred. Disposition: cleared by psyche for discharge, will discharge patient with close PCP follow up, appt made for Tuesday. full code. Visit type - Emergency Visit Emergency Visit: Yes ED Registration Date: 03/10/18 Care time: The patient presented to the Emergency Department on the above date and was hospitalized for further evaluation of their emergent condition. - New Patient This patient is new to me today: Yes Date on this admission: 03/10/18 - Critical Care Critical Care patient: No Hospitalist Screening - Colonoscopy Questionnaire Colonoscopy Questionnaire: Colonoscopy Questionnaire - Patient: 50 - 75 years old and never had a screening colonoscopy: Yes History of colon or rectal polyps, or CA: Unknown History of IBD, Crohn's disease or UC: Unknown History of abdominal radiation therapy as a child: Unknown - Relative: 1 with colon or rectal CA, or polyps at age 60 or younger: Unknown Colon or rectal CA diagnosed at age 45 or younger: Unknown Multiple relatives with colon or rectal CA: Unknown - Outcome: Screening Result: Positive Screen
--- NOTE | 2018-03-10 09:32 | EKG ---
Test Reason : Blood Pressure : / mmHG Vent. Rate : 109 BPM Atrial Rate : 050 BPM P-R Int : 000 ms QRS Dur : 104 ms QT Int : 340 ms P-R-T Axes : 000 083 030 degrees QTc Int : 457 ms ATRIAL FIBRILLATION WITH RAPID VENTRICULAR RESPONSE INCOMPLETE RIGHT BUNDLE BRANCH BLOCK ABNORMAL ECG WHEN COMPARED WITH ECG OF 14-JUN-2017 01:26, QT HAS SHORTENED Confirmed by VIKTOR OCHOA MD ([id number]) on 03/10/2018 9:31:45 AM Referred By: Confirmed By:VIKTOR OCHOA MD
[2018-03-10] MEDS ORDERED: DOCUSATE SODIUM 100 MG CAPSULE (FP) PO SCH (10:00)
[2018-03-10] MEDS ORDERED: PARoxetine HCL 20 MG TABLET (FP) PO SCH (10:00)
[2018-03-10] MEDS ORDERED: ARIPiprazole 5 MG TABLET (FP) PO SCH (10:00)
[2018-03-10] MEDS ORDERED: LITHIUM CARBONATE 300 MG CAPSULE (FP) PO SCH (10:00)
[2018-03-10] MEDS ORDERED: DOCUSATE SODIUM 100 MG CAPSULE (FP) PO ONE (10:29)
[2018-03-10] MEDS ORDERED: ARIPiprazole 5 MG TABLET (FP) ONE (10:29)
[2018-03-10] MEDS ORDERED: PARoxetine HCL 10 MG TABLET (FP) ONE (10:29)
[2018-03-10 11:10] VITALS: BP 123/83; PULSE 74; TEMP 97.8
--- NOTE | 2018-03-10 12:59 | DS ---
Physical Exam: SUBJECTIVE: Patient seen and examined OBJECTIVE: Vital Signs Period Temp Pulse Resp BP Sys/Reyes Pulse Ox Last 24 Hr 97.8 F-99.2 F 74-108 18-21 123-135/66-87 95-99 PHYSICAL EXAM GENERAL: The patient is awake, alert, and fully oriented, in no acute distress. HEAD: Normal with no signs of trauma. EYES: PERRL, extraocular movements intact, sclera anicteric, conjunctiva clear. ENT: Ears normal, nares patent, oropharynx clear without exudates, moist mucous membranes. NECK: Trachea midline, full range of motion, supple. LUNGS: Breath sounds equal, clear to auscultation bilaterally, no wheezes, no crackles, no accessory muscle use. HEART: Regular rate and rhythm, S1, S2 without murmur, rub or gallop. ABDOMEN: Soft, nontender, nondistended, normoactive bowel sounds, no guarding, no rebound, no hepatosplenomegaly, no masses. EXTREMITIES: 2+ pulses, warm, well-perfused, no edema. NEUROLOGICAL: Cranial nerves II through XII grossly intact. Normal speech, gait not observed. PSYCH: Normal mood, normal affect. SKIN: Warm, dry, normal turgor, no rashes or lesions noted. LABS Laboratory Results - last 24 hr 03/09/18 03/09/18 03/09/18 22:17 22:17 23:27 WBC 10.0 RBC 4.16 Hgb 13.6 D Hct 40.3 D MCV 97.0 H MCH 32.8 MCHC 33.8 RDW 13.8 Plt Count 163 MPV 9.6 Neutrophils % 69.3 Lymphocytes % 12.6 Monocytes % 11.6 H Eosinophils % 5.8 H Basophils % 0.7 Sodium 140 Potassium 4.4 Chloride 108 H Carbon Dioxide 21 Anion Gap 11 BUN 43 H D Creatinine 1.2 Creat Clearance w eGFR > 60 Random Glucose 109 H Calcium 8.7 Total Bilirubin 0.4 D AST 23 ALT 36 Alkaline Phosphatase 89 Total Protein 7.0 Albumin 3.8 Urine Color Urine Appearance Urine pH Ur Specific [place] Urine Protein Urine Glucose (UA) Urine Ketones Urine Blood Urine Nitrite Urine Bilirubin Urine Urobilinogen Ur Leukocyte Esterase Digoxin 0.0886 L Opiates Screen Negative Methadone Screen Negative Barbiturate Screen Negative Phencyclidine Screen Negative Ur Amphetamines Screen Negative MDMA (Ecstasy) Screen Negative Benzodiazepines Screen Negative Cocaine Screen Negative U Marijuana (THC) Screen Negative 03/09/18 23:27 WBC RBC Hgb Hct MCV MCH MCHC RDW Plt Count MPV Neutrophils % Lymphocytes % Monocytes % Eosinophils % Basophils % Sodium Potassium Chloride Carbon Dioxide Anion Gap BUN Creatinine Creat Clearance w eGFR Random Glucose Calcium Total Bilirubin AST ALT Alkaline Phosphatase Total Protein Albumin Urine Color Straw Urine Appearance Clear Urine pH 6.0 Ur Specific [place] 1.009 Urine Protein Negative Urine Glucose (UA) Negative Urine Ketones Negative Urine Blood Negative Urine Nitrite Negative Urine Bilirubin Negative Urine Urobilinogen Negative Ur Leukocyte Esterase Negative Digoxin Opiates Screen Methadone Screen Barbiturate Screen Phencyclidine Screen Ur Amphetamines Screen MDMA (Ecstasy) Screen Benzodiazepines Screen Cocaine Screen U Marijuana (THC) Screen HOSPITAL COURSE: Date of Admission:03/10/18 Date of Discharge: 03/10/18 Discharge Summary Reason For Visit: PSYCHOSIS Condition: Stable - Instructions Diet, Activity, Other Instructions: Mr. Pryor: Please return to the ER with any new or worsening symptoms. New medication for you: Abilify 5mg daily, plse bring a complete list of your medications with you when you see your primary care physician. Stop taking the Zyprexa Please speak with Dr. Alvarez about a new psychiatrist referral. You have an appointment on March 13Tuesday at 12:[address] Alvarez. Please call me with any questions that you may have. [phone] [facility] Referrals: Davonte Alvarez [Primary Care Provider] - (Appointment for at 12:20 pm) Disposition: HOME - Home Medications Comprehensive Discharge Medication List: Ambulatory Orders Metoprolol Succinate [Toprol XL -] 50 mg PO BID 01/24/18 Paroxetine HCl [Paxil] 20 mg PO DAILY 01/24/18 [place] Carbonate [Eskalith -] 600 mg PO BID #0 capsule 01/26/18 Aripiprazole [Abilify -] 5 mg PO DAILY #30 tablet 03/10/18 Docusate Sodium [Dulcolax Stool Softener] 100 mg PO DAILY 03/10/18 Rivaroxaban [Xarelto -] 20 mg PO DAILY 03/10/18
[2018-03-10] MEDS ORDERED: RIVAROXABAN 20 MG TABLET PO SCH (17:30)
[2018-03-10] MEDS ORDERED: OLANZapine 2.5 MG TABLET PO SCH (22:00)
== END 2018-03-10 12:28 | disposition home or self-care (01) ==
LOC: JER 19:38 → JERBED 03-10 09:05
PROVIDERS: ADMIT Internal Medicine; ATTEND Nurse Practitioner Family
DX: F28 Other psychotic disorder not due to a substance or known physiological condition (principal); F22 Delusional disorders; I48.91 Unspecified atrial fibrillation; Z79.01 Long term (current) use of anticoagulants; Z86.73 Personal history of transient ischemic attack (TIA), and cerebral infarction without residual deficits; Z88.0 Allergy status to penicillin; Z91.14 Patient's other noncompliance with medication regimen
CPT/HCPCS: 36415; 80053; 80162; 80178; 80307; 81003; 85025; 93005; 93010; 99283-25; G0378

== ENCOUNTER 2018-04-10 13:46 | Inpatient (IN) | payer OTHER ==
--- NOTE | 2018-04-10 15:18 | PDOC ---
History of Present Illness - General Chief Complaint: Psychiatric Stated Complaint: EVALUATION Time Seen by Provider: 04/10/18 14:46 History Source: Patient Exam Limitations: No Limitations - History of Present Illness Initial Comments: 04/10/18 15:12 Patient is a 63M with history of afib, CVA (2004), schizophrenia with paranoid delusion disorder here today complaining of suicidal ideation. He describes a grandiose conspiracy theory involving the [facility] prosecutor, [facility] and his neighbors to persecute him. He also describes getting secret messages in the newspaper. Patient states that he takes lithium and paxil, but recently stopped taking abilify and zyprexa because it wasn't working. Endorses thinking about suicide by driving his car into a wall because he can't take the stress of the "abuse" he is taking. Denies chest pain, fevers, chills, nausea, vomiting. PCP: Dr Alvarez 04/10/18 18:13 Laboratory Tests 04/10/18 04/10/18 04/10/18 15:10 15:10 15:10 WBC 9.9 Hct 41.6 Plt Count 162 BUN 44 H Creatinine 1.1 Creat Clearance w eGFR > 60 Random Glucose 139 H D Urine Nitrite Negative Ur Leukocyte Esterase Negative Salicylates < 1.70 Acetaminophen <2.0 Alcohol, Quantitative < 5.0 CBC normal. CMP reassuring. UA negative. Tox negative. [place] pending. Past History - Past Medical History Allergies/Adverse Reactions: Allergies Allergy/AdvReac Type Severity Reaction Status Date / Time Penicillins Allergy Unknown Verified 04/10/18 14:01 Home Medications: Ambulatory Orders Metoprolol Succinate [Toprol XL -] 50 mg PO BID 01/24/18 Paroxetine HCl [Paxil] 20 mg PO DAILY 01/24/18 [place] Carbonate [Eskalith -] 600 mg PO BID #0 capsule 01/26/18 Aripiprazole [Abilify -] 5 mg PO DAILY #30 tablet 03/10/18 Docusate Sodium [Dulcolax Stool Softener] 100 mg PO DAILY 03/10/18 Rivaroxaban [Xarelto -] 20 mg PO DAILY 03/10/18 Cardiac Disorders: Yes (A-fib) CVA: Yes (2014) COPD: No Psychiatric Problems: Yes (DEPRESSION,ANXIETY,BIPOLAR?) - Suicide/Smoking/Psychosocial Hx Smoking History: Never smoked Have you smoked in the past 12 months: No Number of Cigarettes Smoked Daily: 0 Hx Alcohol Use: No Drug/Substance Use Hx: No Substance Use Type: None Review of Systems - Review of Systems Comments:: 04/10/18 15:18 GENERAL/CONSTITUTIONAL: No fever or chills. No weakness. HEAD, EYES, EARS, NOSE AND THROAT: No change in vision. No sore throat. CARDIOVASCULAR: No chest pain or shortness of breath RESPIRATORY: No cough, wheezing, or hemoptysis. GASTROINTESTINAL: No nausea, vomiting, diarrhea or constipation. GENITOURINARY: No dysuria, frequency, or change in urination. MUSCULOSKELETAL: No joint or muscle swelling or pain. No neck or back pain. SKIN: No rash NEUROLOGIC: No headache, vertigo, loss of consciousness, or change in strength/ sensation. ENDOCRINE: No increased thirst. No abnormal weight change HEMATOLOGIC/LYMPHATIC: No anemia, easy bleeding, or history of blood clots. ALLERGIC/IMMUNOLOGIC: No hives or skin allergy. *Physical Exam - Vital Signs Last Vital Signs Temp Pulse Resp BP Pulse Ox 98.1 F 100 H 20 142/75 95 04/10/18 14:01 04/10/18 14:01 04/10/18 14:01 04/10/18 14:01 04/10/18 14:01 - Physical Exam Comments: 04/10/18 15:19 GENERAL: Awake, alert, and fully oriented, in no acute distress PSYCH: Cooperative, describes delusions, SI, no HI. HEAD: No signs of trauma, normocephalic, atraumatic EYES: PERRLA, EOMI, sclera anicteric, conjunctiva clear ENT: Auricles normal inspection, hearing grossly normal, nares patent, oropharynx clear without exudates. Moist mucosa NECK: Normal ROM, supple, no lymphadenopathy, JVD, or masses LUNGS: No distress, speaks full sentences, clear to auscultation bilaterally HEART: Regular rate and rhythm, normal S1 and S2, no murmurs, rubs or gallops, peripheral pulses normal and equal bilaterally. ABDOMEN: Soft, nontender, normoactive bowel sounds. No guarding, no rebound. 4x3cm reducible hernia EXTREMITIES: Normal inspection, Normal range of motion, no edema. No clubbing or cyanosis. NEUROLOGICAL: Cranial nerves II through XII grossly intact. Normal speech, normal gait, no focal sensorimotor deficits SKIN: Warm, Dry, normal turgor, no rashes or lesions noted. ED Treatment Course - LABORATORY CBC & Chemistry Diagram: 04/10/18 15:10 04/10/18 15:10 - RADIOLOGY Radiology Studies Ordered: Category Date Time Status CHEST PA & LAT [RAD] Stat Radiology 04/10/18 15:04 Ordered Medical Decision Making - Medical Decision Making 04/10/18 15:20 Patient is 63M with history of schizophrenia with delusion disorder, CVA, afib here today with suicidal ideation. Vital signs stable and normal. Will clear medically for psych. Psych contacted; Dr Marie states that he will see patient. 04/10/18 15:51 EKG shows afib with rvr with rate of 106. No st elevations/depressions. No significant t-wave inversions. Irregular. Normal QRS/QTc intervals. Normal axis. 04/10/18 16:12 CXR shows no acute cardiopulmonary process. 04/10/18 18:17 Dr Marie evaluated patient, states that he requires commitment. 2PC form signed by Dr Marie and Dr Bustos. Will admit patient to observation until able to be placed. 04/10/18 18:29 Dr Molina accepted to obs m/s. *DC/Admit/Observation/Transfer Diagnosis at time of Disposition: Suicidal ideation - Discharge Dispostion Condition at time of disposition: Stable Decision to Admit order: Yes - Referrals Referrals: Davonte Alvarez [Primary Care Provider] - - Patient Instructions - Post Discharge Activity
--- NOTE | 2018-04-10 15:42 | PDOC ---
Attending Attestation - HPI HPI: 04/10/18 15:52 The patient is a 63 year old male, with a significant past medical history of AFib, CVA (2005), schizophrenia with paranoid delusion disorder, who presents to the emergency department with, worsening suicidal ideation. As per patient, his symptoms are ongoing for the past 20 years worsening recently. The patient is noncompliant with his Zyprexa and Abilify because he believes it does no agree well with him. He denies any recent fevers, chills, headache or dizziness. He denies any recent nausea, vomit, diarrhea or constipation. He denies any recent chest pain or shortness of breath. He denies any recent dysuria, frequency, urgency or hematuria. Allergies: Penicillins. Past surgical history: None reported. Social History: Nonsmoker. Denies EtOH use and recreational drug use. Primary Care Physician: Dr Alvarez - Physicial Exam PE: 04/10/18 15:53 GENERAL: Awake, alert, and in no acute distress HEAD: No signs of trauma NEUROLOGICAL: Cranial nerves II through XII grossly intact. Normal speech, normal gait SKIN: Warm, Dry, normal turgor, no rashes or lesions noted. +PSYCHIATRY: Suicidal ideation. <Aurelio Loredo - Last Filed: 04/10/18 15:52> - Resident Resident Name: Ayaz Garnica - ED Attending Attestation I have performed the following: I have examined & evaluated the patient, The case was reviewed & discussed with the resident, I agree w/resident's findings & plan, Exceptions are as noted - Medical Decision Making 04/10/18 15:39 A portion of this note was written by my scribe, under my supervision. Vital Signs Temp Pulse Resp BP Pulse Ox 98.1 F 100 H 20 142/75 95 04/10/18 14:01 04/10/18 14:01 04/10/18 14:01 04/10/18 14:01 04/10/18 14:01 63-year-old male with history of schizophrenia presents with suicidal thoughts, paranoid behavior. The patient was recently admitted approximately one month ago for similar behaviors. He was given follow-up with a new psychiatrist as well as adjustment to his medications. However, patient reports that the Zyprexa and Abilify was not agreeable to the patient and has stopped taking his medications. States that he continue continues to feel depressed and anxious. He is requesting to see psychiatrist. Denies any active harm to himself. Given this history, patient was placed on one-to-one watch. We'll perform medical clearance and consult psychiatry. Dispo per psychiatry. 04/10/18 17:21 CBC, BMP 04/10/18 15:10 04/10/18 15:10 CMP Sodium 138 mmol/L (136-145) 04/10/18 15:10 Potassium 4.8 mmol/L (3.5-5.1) 04/10/18 15:10 Chloride 108 mmol/L (98-107) H 04/10/18 15:10 Carbon Dioxide 21 mmol/L (21-32) 04/10/18 15:10 Anion Gap 9 (8-16) 04/10/18 15:10 BUN 44 mg/dL (7-18) H 04/10/18 15:10 Creatinine 1.1 mg/dL (0.7-1.3) 04/10/18 15:10 Creat Clearance w eGFR > 60 (>60) 04/10/18 15:10 Random Glucose 139 mg/dL (74-106) H D 04/10/18 15:10 Calcium 8.9 mg/dL (8.5-10.1) 04/10/18 15:10 Total Bilirubin 0.3 mg/dL (0.2-1.0) D 04/10/18 15:10 AST 37 U/L (15-37) D 04/10/18 15:10 ALT 64 U/L (12-78) D 04/10/18 15:10 Alkaline Phosphatase 100 U/L (45-117) 04/10/18 15:10 Total Protein 7.2 g/dl (6.4-8.2) 04/10/18 15:10 Albumin 3.8 g/dl (3.4-5.0) 04/10/18 15:10 Urine Test Results Urine Color Straw 04/10/18 15:10 Urine Appearance Clear 04/10/18 15:10 Urine pH 6.0 (5.0-8.0) 04/10/18 15:10 Ur Specific [place] 1.008 (1.001-1.035) 04/10/18 15:10 Urine Protein Negative (NEGATIVE) 04/10/18 15:10 Urine Glucose (UA) Negative (NEGATIVE) 04/10/18 15:10 Urine Ketones Negative (NEGATIVE) 04/10/18 15:10 Urine Blood Negative (NEGATIVE) 04/10/18 15:10 Urine Nitrite Negative (NEGATIVE) 04/10/18 15:10 Urine Bilirubin Negative (<2.0 mg/dL) 04/10/18 15:10 Ur Leukocyte Esterase Negative (NEGATIVE) 04/10/18 15:10 04/10/18 17:21 Dr. Garnica had consulted Dr. Marie. He will consult on patient. 04/10/18 18:[address] Marie. Pt will be admitted and placed under 2 PC (psych facility) <Durga Bustos - Last Filed: 04/10/18 18:09> Heart Score/ECG Review #1 ECG reviewed & interpreted by me at: 15:35 04/10/18 15:38 atrial fibrillation 106, incomplete RBBB, QTC 462 msec <Durga Bustos - Last Filed: 04/10/18 18:09> Attestations - Attestations 04/10/18 15:54 Documentation prepared by Aurelio Loredo, acting as product manager medical device for Durga Bustos MD. <Aurelio Loredo - Last Filed: 04/10/18 15:52>
[2018-04-10 15:51] LABS: HEMATOCRIT 41.6 % (35.4-49); HEMOGLOBIN 13.8 GM/dL (11.7-16.9); MCH 31.9 pg (25.7-33.7); MCHC 33.2 g/dl (32.0-35.9); MEAN CELL VOLUME 95.8 fl (80-96); MEAN PLT VOLUME 9.1 fl (7.5-11.1); PLATELET COUNT 162 K/MM3 (134-434); RBC 4.34 M/mm3 (4.00-5.60); RDW 13.6 % (11.9-15.9); WHITE BLOOD COUNT 9.9 K/mm3 (4.0-10.0)
[2018-04-10 16:01] LABS: URINE APPEARANCE CLEAR; URINE BILIRUBIN NEGATIVE (<2.0 mg/dL); URINE BLOOD NEGATIVE (NEGATIVE); URINE COLOR STRAW; URINE GLUCOSE (UA) NEGATIVE (NEGATIVE); URINE KETONE NEGATIVE (NEGATIVE); URINE LEUK ESTERASE NEGATIVE (NEGATIVE); URINE NITRITE NEGATIVE (NEGATIVE); URINE PROTEIN NEGATIVE (NEGATIVE); URINE UROBILINOGEN NEGATIVE mg/dL (0.2-1.0)
[2018-04-10 16:13] LABS: ALBUMIN 3.8 g/dl (3.4-5.0); ALK PHOS 100 U/L (45-117); ANION GAP 9 (8-16); BILIRUBIN,TOTAL 0.3 mg/dL (0.2-1.0); BLOOD UREA NITROGEN 44 mg/dL (7-18); CALCIUM 8.9 mg/dL (8.5-10.1); CHLORIDE 108 mmol/L (98-107); CO2 21 mmol/L (21-32); CREATININE 1.1 mg/dL (0.7-1.3); GLUCOSE,RANDOM 139 mg/dL (74-106); POTASSIUM 4.8 mmol/L (3.5-5.1); SGOT/AST 37 U/L (15-37); SGPT/ALT 64 U/L (12-78); SODIUM 138 mmol/L (136-145); TOT PROT 7.2 g/dl (6.4-8.2)
[2018-04-10 16:36] LABS: SALICYLATE < 1.70 mg/dL
[2018-04-10 16:52] LABS: ACETAMINOPHEN <2.0 ug/mL
--- NOTE | 2018-04-10 18:08 | CON.PSY ---
Psychiatry Consult Chief Complaint: 63 yhear old male woaakash life;long history of Paranoid Schizophrenia came to ER complaining that FBI< POLICE AND all Politicians are attempting bto KIll him. He vfeels unsafe ou[place]ide . Appears anxious and apprehensive and cfearful. Patient repportsd he took his Psych meds this am. Symptoms: reports: Racing Thoughts, Delusions, Paranoia - Previous Psychiatric Treatment Outpatient: Less than 6 mos ago Inpatient: 2 or more prior admissions - Previous Substance Abuse Treatment Outpatient: None Inpatient: None - Reason for Previous Treatment Reason for Previous Treatment: Psychotic Episode - Allergies Allergies: Allergies Allergy/AdvReac Type Severity Reaction Status Date / Time Penicillins Allergy Unknown Verified 04/10/18 14:01 - Current Living Status Usual Living Arrangement: Alone - Current Mental Status Evaluation Appearance: Disheveled Attitude: Suspicious - Affect Affect: Constrictive Appropriateness: Not Appropriate - Mood Mood: Anxious - Speech/Language Expressive: Coherent - Psychomotor Activity Psychomotor Activity: Hyperactive - Thought Process Thought Process: Intact - Thought Content Hallucinations: Absent Delusions: Present Type: Persectory - Self Perception Self Perception: No Impairment - Cognition Attention: Alert Orientation: Time Memory, Immediate Recall: Intact Memory, Short Term: 2/3 Memory, Remote with Promptin/3 - Concentration Serial Sevens Intact: No Simple Calculations Intact: No - Abstraction Proverb Interpretation: Impaired Judgement: Severely Impaired - Insight Insight: Impaired - Impulse Control Impulse Control: Moderately Impaired - Suicidal Ideation Suicidal Ideation: No - Homicidal Ideation Homicidal Ideation: No Assessment/Plan 1) REFer to In Patient Psych Admission.
--- NOTE | 2018-04-10 20:33 | HP ---
Admitting History and Physical - Primary Care Physician PCP: Karlo Molina - Admission History of Present Illness: 63 year old male, with a significant past medical history of AFib, CVA (2004), schizophrenia with paranoid delusion disorder, who presents to the emergency department with, worsening suicidal ideation. As per patient, his symptoms are ongoing for the past 20 years worsening recently. The patient is noncompliant with his Zyprexa and Abilify . 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 Cardiovascular: Yes: AFIB Hepatobiliary: Yes: Other (incontinence) Psych: Yes: Panic, Schizophrenia - Smoking History Smoking history: Never smoked Have you smoked in the past 12 months: No Aproximately how many cigarettes per day: 0 - Alcohol/Substance Use Hx Alcohol Use: No History of Substance Use: reports: None - Social History ADL: Independent Home Medications - Allergies Allergies/Adverse Reactions: Allergies Allergy/AdvReac Type Severity Reaction Status Date / Time Penicillins Allergy Unknown Verified 04/10/18 14:01 - Home Medications Home Medications: Ambulatory Orders Metoprolol Succinate [Toprol XL -] 50 mg PO BID 01/24/18 Paroxetine HCl [Paxil] 20 mg PO DAILY 01/24/18 [place] Carbonate [Eskalith -] 600 mg PO BID #0 capsule 01/26/18 Rivaroxaban [Xarelto -] 20 mg PO DAILY 03/10/18 Physical Examination Vital Signs: Vital Signs Temperature 98.1 F 04/10/18 14:01 Pulse Rate 100 H 04/10/18 14:01 Respiratory Rate 20 04/10/18 14:01 Blood Pressure 142/75 04/10/18 14:01 O2 Sat by Pulse Oximetry (%) 95 04/10/18 14:01 Constitutional: Yes: Calm HENT: Yes: Atraumatic Neck: Yes: Supple Cardiovascular: Yes: Regular Rate and Rhythm Respiratory: Yes: CTA Bilaterally, Rhonchi Gastrointestinal: Yes: Normal Bowel Sounds Extremities: Yes: WNL Neurological: Yes: Alert, Oriented Labs: CBC, BMP 04/10/18 15:10 04/10/18 15:10 Problem List - Problems (1) Suicidal ideation Assessment/Plan: pt is on 1:1 PSYC H ON BOARD CONTINUE HOME MEDS PT FOR TRANSFER TO INPATIENT PSYCH Code(s): R45.851 - SUICIDAL IDEATIONS Assessment/Plan Laboratory Tests 04/10/18 04/10/18 04/10/18 15:10 15:10 15:10 WBC 9.9 RBC 4.34 Hgb 13.8 Hct 41.6 MCV 95.8 MCH 31.9 MCHC 33.2 RDW 13.6 Plt Count 162 MPV 9.1 Sodium 138 Potassium 4.8 Chloride 108 H Carbon Dioxide 21 Anion Gap 9 BUN 44 H Creatinine 1.1 Creat Clearance w eGFR > 60 Random Glucose 139 H D Calcium 8.9 Total Bilirubin 0.3 D AST 37 D ALT 64 D Alkaline Phosphatase 100 Total Protein 7.2 Albumin 3.8 Urine Color Straw Urine Appearance Clear Urine pH 6.0 Ur Specific [place] 1.008 Urine Protein Negative Urine Glucose (UA) Negative Urine Ketones Negative Urine Blood Negative Urine Nitrite Negative Urine Bilirubin Negative Urine Urobilinogen Negative Ur Leukocyte Esterase Negative Salicylates < 1.70 Acetaminophen <2.0 Alcohol, Quantitative < 5.0 Active Medications Generic Name Dose Route Start Last Admin Trade Name Freq PRN Reason Stop Dose Admin Acetaminophen 650 mg 04/10/18 20:41 Tylenol - PO Q6H PRN FEVER Guaifenesin 10 ml 04/11/18 05:22 04/11/18 05:28 Guaifenesin Dm Syrup PO 10 ml Q6H PRN Administration COUGH [place] Carbonate 600 mg 04/11/18 10:00 04/11/18 09:38 Eskalith - PO 600 mg BID [place]ILL Administration Metoprolol Succinate 50 mg 04/10/18 22:00 04/11/18 09:38 Toprol Xl - PO 50 mg BID [place] Administration Paroxetine HCl 20 mg 04/11/18 10:00 04/11/18 09:38 Paxil - PO 20 mg DAILY [place]ILL Administration Rivaroxaban 20 mg 04/11/18 18:00 04/11/18 17:59 Xarelto - PO 20 mg DAILY@1800 [place]ILL Administration
[2018-04-10] MEDS ORDERED: ACETAMINOPHEN 325 MG TABLET (FP) PO PRN ×2 (20:41→22:07)
[2018-04-10] MEDS ORDERED: LORazepam 1 MG TABLET PO PRN (22:06)
[2018-04-10] MEDS ORDERED: guaiFENesin/D-METHORPHAN HB 10 ML UNIT-DOSE CUPS PO PRN (22:07)
[2018-04-10] MEDS ORDERED: guaiFENesin 200 MG/10 ML 10 ML UNIT-DOSE CUPS ONE (22:17)
[2018-04-10] MEDS ORDERED: LORazepam 0.5 MG TABLET ONE (22:18)
[2018-04-11 01:04] VITALS: BMI 38.7
[2018-04-11] MEDS: guaiFENesin/D-METHORPHAN HB 5 ML UNIT-DOSE CUPS PO PRN (05:28)
[2018-04-11] MEDS ORDERED: PT OWN MED DRAWER 7, Y5N ONE ×2 (09:35→21:45)
[2018-04-11] MEDS: PARoxetine HCL 20 MG TABLET (FP) PO SCH (09:38)
[2018-04-11] MEDS: LITHIUM CARBONATE 300 MG CAPSULE (FP) PO SCH ×2 (09:38→21:55)
[2018-04-11] MEDS ORDERED: ARIPiprazole 5 MG TABLET (FP) PO SCH (10:00)
--- NOTE | 2018-04-11 10:47 | CON.CARD ---
Consult Consult Specialty:: Cardiology Referred by:: Dr. Molina Reason for Consultation:: Cardiac evaluation - History of Present Illness History of Present Illness: patient is a 63 year old male with underlying history of permanent atrial fibrillation on NOAC (Xarelto), CVA with no residual deficit and schizophrenia/ paranoid delusion who presents with worsening suicidal ideation according to ER note. He also complains of intermittent cough that is productive of green sputum. He denies chest pain, shortness of breath or palpitations. He denies paroxysmal nocturnal dyspnea or orthopnea. He denies fever or chills. He denies headache, but complains of intermittent dizziness. He denies nausea. vomiting, diarrhea or abdominal pain. 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 Cardio/Vascular: Yes: AFIB Psych: Yes: Panic, Schizophrenia - Past Surgical History Past Surgical History: Yes: None - Alcohol/Substance Use Hx Alcohol Use: No History of Substance Use: reports: None - Smoking History Smoking history: Never smoked Have you smoked in the past 12 months: No Aproximately how many cigarettes per day: 0 - Social History Usual Living Arrangement: Alone ADL: Independent Home Medications - Allergies Allergies/Adverse Reactions: Allergies Allergy/AdvReac Type Severity Reaction Status Date / Time Penicillins Allergy Unknown Verified 04/10/18 14:01 - Home Medications Home Medications: Ambulatory Orders Metoprolol Succinate [Toprol XL -] 50 mg PO BID 01/24/18 Paroxetine HCl [Paxil] 20 mg PO DAILY 01/24/18 [place] Carbonate [Eskalith -] 600 mg PO BID #0 capsule 01/26/18 Rivaroxaban [Xarelto -] 20 mg PO DAILY 03/10/18 Family Disease History - Family Disease History Other Family History: History of HTN and DM Review of Systems - Review of Systems Constitutional: denies: Chills, Fever Cardiovascular: denies: Chest Pain, Palpitations, Shortness of Breath Respiratory: reports: Cough. denies: Hemoptysis, Orthopnea, PND, SOB, SOB on Exertion Gastrointestinal: denies: Abdominal Pain, Constipation, Diarrhea, Melena, Nausea , Rectal Bleeding, Vomiting Genitourinary: denies: Dysuria Musculoskeletal: reports: Back Pain. denies: Joint Pain Neurological: reports: Dizziness. denies: Headache, Numbness, Seizure, Syncope , Unsteady Gait Psychiatric: reports: Suicidal Vital Signs: Vital Signs Temperature 97.4 F L 04/11/18 06:00 Pulse Rate 103 H 04/11/18 06:00 Respiratory Rate 20 04/11/18 06:00 Blood Pressure 119/83 04/11/18 06:00 O2 Sat by Pulse Oximetry (%) 96 04/11/18 08:20 HENT: Yes: Atraumatic Neck: Yes: Supple Respiratory: Yes: Diminished Gastrointestinal: Yes: Normal Bowel Sounds, Soft. No: Tenderness Cardiovascular: Yes: Pulse Irregular JVD: No Carotid Bruit: No PMI: Non-Displaced Heart Sounds: Yes: S1, S2. No: Gallop Murmur: Yes: Systolic Murmur, Grade 1 Edema: Yes Edema: LLE: Trace, RLE: Trace - Other Data Labs, Other Data: CBC, BMP 04/10/18 15:10 04/10/18 15:10 Laboratory Results - last 24 hr 04/10/18 04/10/18 04/10/18 15:10 15:10 15:10 WBC 9.9 RBC 4.34 Hgb 13.8 Hct 41.6 MCV 95.8 MCH 31.9 MCHC 33.2 RDW 13.6 Plt Count 162 MPV 9.1 Sodium 138 Potassium 4.8 Chloride 108 H Carbon Dioxide 21 Anion Gap 9 BUN 44 H Creatinine 1.1 Creat Clearance w eGFR > 60 Random Glucose 139 H D Calcium 8.9 Total Bilirubin 0.3 D AST 37 D ALT 64 D Alkaline Phosphatase 100 Total Protein 7.2 Albumin 3.8 Urine Color Straw Urine Appearance Clear Urine pH 6.0 Ur Specific [place] 1.008 Urine Protein Negative Urine Glucose (UA) Negative Urine Ketones Negative Urine Blood Negative Urine Nitrite Negative Urine Bilirubin Negative Urine Urobilinogen Negative Ur Leukocyte Esterase Negative Salicylates < 1.70 Acetaminophen <2.0 Alcohol, Quantitative < 5.0 Atrial fibrillation with RVR Problem List - Problems (1) Schizophrenia Code(s): F20.9 - SCHIZOPHRENIA, UNSPECIFIED (2) Suicidal ideation Code(s): R45.851 - SUICIDAL IDEATIONS (3) Afib Code(s): I48.91 - UNSPECIFIED ATRIAL FIBRILLATION Qualifiers: Atrial fibrillation type: permanent Qualified Code(s): I48.2 - Chronic atrial fibrillation (4) CVA (cerebral vascular accident) Code(s): I63.9 - CEREBRAL INFARCTION, UNSPECIFIED Assessment/Plan 1. Suicidal ideation currently on 1:1 2. Permanent atrial fibrillation on NOAC 3. History of CVA with no residual deficit 4. Clinical presentation of bronchitis PLAN: 1. Continue Metoprolol as tolerated 2. Continue Xarelto as tolerated unless contraindicated 3. Psych input noted 4. May consider transthoracic echocardiography either here as inpatient or as outpatient. Further plans are to follow Vipin Mix MD
[2018-04-11] MEDS ORDERED: LORazepam 1 MG TABLET PO ONE (12:30)
--- NOTE | 2018-04-11 13:17 | EKG ---
Test Reason : Blood Pressure : / mmHG Vent. Rate : 106 BPM Atrial Rate : 102 BPM P-R Int : 000 ms QRS Dur : 094 ms QT Int : 348 ms P-R-T Axes : 000 083 032 degrees QTc Int : 462 ms ATRIAL FIBRILLATION WITH RAPID VENTRICULAR RESPONSE INCOMPLETE RIGHT BUNDLE BRANCH BLOCK ABNORMAL ECG WHEN COMPARED WITH ECG OF 10-MAR-2018 00:38, NO SIGNIFICANT CHANGE WAS FOUND Confirmed by MD LISA, ANA ([id number]) on 04/11/2018 1:16:52 PM Referred By: Confirmed By:ANA GONZALEZ MD
[2018-04-11] MEDS: RIVAROXABAN 20 MG TABLET PO SCH (17:59)
--- NOTE | 2018-04-11 19:11 | PN ---
Progress Note, Physician History of Present Illness: feeling better - Current Medication List Current Medications: Active Medications Acetaminophen (Tylenol -) 650 mg PO Q6H PRN PRN Reason: FEVER Guaifenesin (Guaifenesin Dm Syrup) 10 ml PO Q6H PRN PRN Reason: COUGH Last Admin: 04/11/18 05:28 Dose: 10 ml [place] Carbonate (Eskalith -) 600 mg PO BID [facility] Last Admin: 04/11/18 09:38 Dose: 600 mg Metoprolol Succinate (Toprol Xl -) 50 mg PO BID [facility] Last Admin: 04/11/18 09:38 Dose: 50 mg Paroxetine HCl (Paxil -) 20 mg PO DAILY [facility] Last Admin: 04/11/18 09:38 Dose: 20 mg Rivaroxaban (Xarelto -) 20 mg PO DAILY@1800 [facility] Last Admin: 04/11/18 17:59 Dose: 20 mg - Objective Vital Signs: Vital Signs Temperature 97.6 F 04/11/18 18:00 Pulse Rate 80 04/11/18 18:00 Respiratory Rate 20 04/11/18 18:00 Blood Pressure 116/64 04/11/18 18:00 O2 Sat by Pulse Oximetry (%) 95 04/11/18 09:00 Constitutional: Yes: No Distress HENT: Yes: Atraumatic Neck: Yes: Supple Cardiovascular: Yes: Regular Rate and Rhythm Respiratory: Yes: CTA Bilaterally Gastrointestinal: Yes: Normal Bowel Sounds Extremities: Yes: WNL Neurological: Yes: Alert, Oriented Labs: CBC, BMP 04/10/18 15:10 04/10/18 15:10 Problem List - Problems (1) Suicidal ideation Assessment/Plan: pt is on 1:1 pt has paranoid schizopherenia and not suicidal per psych Code(s): R45.851 - SUICIDAL IDEATIONS
[2018-04-11] MEDS: LORazepam 1 MG TABLET PO PRN (23:08)
[2018-04-11] MEDS: AZITHROMYCIN 500 MG TABLET PO SCH (23:08)
[2018-04-12] MEDS: AZITHROMYCIN 500 MG TABLET PO SCH (10:08)
[2018-04-12] MEDS: PARoxetine HCL 20 MG TABLET (FP) PO SCH (10:08)
[2018-04-12] MEDS: LITHIUM CARBONATE 300 MG CAPSULE (FP) PO SCH ×2 (10:09→21:44)
--- NOTE | 2018-04-12 14:50 | PN ---
Progress Note, Physician History of Present Illness: Rate-controlled afib. - Current Medication List Current Medications: Active Medications Acetaminophen (Tylenol -) 650 mg PO Q6H PRN PRN Reason: FEVER Last Admin: 04/12/18 02:20 Dose: 650 mg Azithromycin (Azithromycin) 500 mg PO DAILY [facility] Stop: 04/15/18 10:01 Last Admin: 04/12/18 10:08 Dose: 500 mg Guaifenesin (Guaifenesin Dm Syrup) 10 ml PO Q6H PRN PRN Reason: COUGH Last Admin: 04/11/18 05:28 Dose: 10 ml [place] Carbonate (Eskalith -) 600 mg PO BID [facility] Last Admin: 04/12/18 10:09 Dose: 600 mg Lorazepam (Ativan -) 1 mg PO HS PRN PRN Reason: AGITATION Last Admin: 04/11/18 23:08 Dose: 1 mg Metoprolol Succinate (Toprol Xl -) 50 mg PO BID [facility] Last Admin: 04/12/18 10:08 Dose: 50 mg Paroxetine HCl (Paxil -) 20 mg PO DAILY [facility] Last Admin: 04/12/18 10:08 Dose: 20 mg Rivaroxaban (Xarelto -) 20 mg PO DAILY@1800 [facility] Last Admin: 04/11/18 17:59 Dose: 20 mg - Objective Vital Signs: Vital Signs Temperature 97.6 F 04/12/18 14:41 Pulse Rate 100 H 04/12/18 14:41 Respiratory Rate 22 04/12/18 14:41 Blood Pressure 126/58 04/12/18 14:41 O2 Sat by Pulse Oximetry (%) 98 04/12/18 09:00 Constitutional: Yes: No Distress, Calm Neck: Yes: Supple Cardiovascular: Yes: Pulse Irregular Respiratory: Yes: Regular, CTA Bilaterally Gastrointestinal: Yes: Normal Bowel Sounds, Soft, Abdomen, Obese Edema: No Labs: CBC, BMP 04/10/18 15:10 04/10/18 15:10 Problem List - Problems (1) Chronic anticoagulation Code(s): Z79.01 - [facility] (CURRENT) USE OF ANTICOAGULANTS (2) CVA (cerebral vascular accident) Code(s): I63.9 - CEREBRAL INFARCTION, UNSPECIFIED Qualifiers: CVA mechanism: unspecified Qualified Code(s): I63.9 - Cerebral infarction, unspecified (3) Schizophrenia Code(s): F20.9 - SCHIZOPHRENIA, UNSPECIFIED Qualifiers: Schizophrenia type: paranoid schizophrenia Qualified Code(s): F20.0 - Paranoid schizophrenia (4) Suicidal ideation Code(s): R45.851 - SUICIDAL IDEATIONS (5) Afib Code(s): I48.91 - UNSPECIFIED ATRIAL FIBRILLATION Qualifiers: Atrial fibrillation type: permanent Qualified Code(s): I48.2 - Chronic atrial fibrillation Assessment/Plan 1. Suicidal ideation with paranoid schizophrenia 2. Permanent atrial fibrillation on NOAC 3. History of CVA with no residual deficit PLAN: 1. Continue Metoprolol 50 bid 2. Continue Xarelto 20 qd 3. Psych input noted, await inpatient psych referral, may be transferred from [facility]
--- NOTE | 2018-04-12 16:25 | PN ---
Progress Note (short form) - Note Progress Note: Psych follow up:patient seen today, no longer feels fearful or unsafe. patient never had any suicidal thoughts or Behaviour. Patient had a long history of paranoid Schizophrenia withy fixed delusions of Being persecuted by Politicians and the FBI(> Not suicidal or Homicidal. Feels better being in the Hospital. *I feel calm and relaxed. wants ton gom home and follow up with his MD. Plan. 1) d/c 1:1 at 8pm. 2)v Discharge home in am. 3) Follow up with his pvt MD>
[2018-04-12] MEDS: RIVAROXABAN 20 MG TABLET PO SCH (17:24)
--- NOTE | 2018-04-12 19:42 | PN ---
Progress Note, Physician History of Present Illness: doing well - Current Medication List Current Medications: Active Medications Acetaminophen (Tylenol -) 650 mg PO Q6H PRN PRN Reason: FEVER Last Admin: 04/12/18 02:20 Dose: 650 mg Azithromycin (Azithromycin) 500 mg PO DAILY [facility] Stop: 04/15/18 10:01 Last Admin: 04/12/18 10:08 Dose: 500 mg Guaifenesin (Guaifenesin Dm Syrup) 10 ml PO Q6H PRN PRN Reason: COUGH Last Admin: 04/11/18 05:28 Dose: 10 ml [place] Carbonate (Eskalith -) 600 mg PO BID [facility] Last Admin: 04/12/18 10:09 Dose: 600 mg Lorazepam (Ativan -) 1 mg PO HS PRN PRN Reason: AGITATION Last Admin: 04/11/18 23:08 Dose: 1 mg Metoprolol Succinate (Toprol Xl -) 50 mg PO BID [facility] Last Admin: 04/12/18 10:08 Dose: 50 mg Paroxetine HCl (Paxil -) 20 mg PO DAILY [facility] Last Admin: 04/12/18 10:08 Dose: 20 mg Rivaroxaban (Xarelto -) 20 mg PO DAILY@1800 [facility] Last Admin: 04/12/18 17:24 Dose: 20 mg - Objective Vital Signs: Vital Signs Temperature 97.6 F 04/12/18 14:41 Pulse Rate 100 H 04/12/18 14:41 Respiratory Rate 22 04/12/18 14:41 Blood Pressure 126/58 04/12/18 14:41 O2 Sat by Pulse Oximetry (%) 98 04/12/18 09:00 Constitutional: Yes: No Distress HENT: Yes: Atraumatic Neck: Yes: Supple Cardiovascular: Yes: Regular Rate and Rhythm Respiratory: Yes: CTA Bilaterally Gastrointestinal: Yes: Normal Bowel Sounds Extremities: Yes: WNL Neurological: Yes: Alert, Oriented Labs: CBC, BMP 04/10/18 15:10 04/10/18 15:10 Problem List - Problems (1) Suicidal ideation Assessment/Plan: dc 1: 1 as per psych he is not suicidal as per psych eval willdc him in am Code(s): R45.851 - SUICIDAL IDEATIONS (2) Schizophrenia Assessment/Plan: on meds stable Code(s): F20.9 - SCHIZOPHRENIA, UNSPECIFIED Qualifiers: Schizophrenia type: paranoid schizophrenia Qualified Code(s): F20.0 - Paranoid schizophrenia
--- NOTE | 2018-04-12 19:59 | CON.NEURO ---
Consult Consult Specialty:: RADHA GARCIA-NEUROLOGY Reason for Consultation:: gait abn x 2 years - History of Present Illness History of Present Illness: 63 year old male, with a significant past medical history of AFib, CVA (2004), schizophrenia with paranoid delusion disorder, who presents to the emergency department with, worsening suicidal ideation. As per patient, his symptoms are ongoing for the past 20 years worsening recently. The patient is noncompliant with his Zyprexa and Abilify . He reports he has had intermittent minimal gait unsteadiness x 2 years but now has steady gait. Denies all other neurologic complaints. Reports he had a stroke 2 years ago from which he recovered well. On Xarelto. Primary Care Physician: Dr Alvarez - Past Medical History [employer]ER: Yes: CVA Cardio/Vascular: Yes: AFIB Hepatobiliary: Yes: Other (incontinence) Psych: Yes: Panic, Schizophrenia - Past Surgical History Past Surgical History: Yes: None - Alcohol/Substance Use Hx Alcohol Use: No History of Substance Use: reports: None - Smoking History Smoking history: Never smoked Have you smoked in the past 12 months: No Aproximately how many cigarettes per day: 0 - Social History Usual Living Arrangement: Alone ADL: Independent Home Medications - Allergies Allergies/Adverse Reactions: Allergies Allergy/AdvReac Type Severity Reaction Status Date / Time Penicillins Allergy Unknown Verified 04/10/18 14:01 - Home Medications Home Medications: Ambulatory Orders Metoprolol Succinate [Toprol XL -] 50 mg PO BID 01/24/18 Paroxetine HCl [Paxil] 20 mg PO DAILY 01/24/18 [place] Carbonate [Eskalith -] 600 mg PO BID #0 capsule 01/26/18 Rivaroxaban [Xarelto -] 20 mg PO DAILY 03/10/18 Family Disease History - Family Disease History Other Family History: History of HTN and DM Physical Exam-Neuro Vital Signs: Vital Signs Temperature 97.6 F 04/12/18 14:41 Pulse Rate 100 H 04/12/18 14:41 Respiratory Rate 22 04/12/18 14:41 Blood Pressure 126/58 04/12/18 14:41 O2 Sat by Pulse Oximetry (%) 98 04/12/18 09:00 Labs: CBC, BMP 04/10/18 15:10 04/10/18 15:10 - Neuro Exam Cranial Nerves II-XII Intact: No (old left right NLF) DTR's: 1+ Left Achilles, 1+ Right Achilles, 2+ Left Bicep, 2+ Right Bicep, 2+ Left Tricep, 2+ Right Tricep, 2+ Left Brachioradialis, 2+ Right Brachioradialis Motor Strength: 5/5: Left Arm, Right Arm, Left Leg, Right Leg (Tone is slightly increased in both legs) Gait: Other (very slightly wide based but steady, normal arm swing) Assessment/Plan s/p CVA, on xarelto, has minimal intermittent subjective unstaediness. ?? gait abn.due to increased tone. No signs of hydrocephalus. Will obtain brain imaging as outpt. No further neurologic intervention required at this time. Thank you, Pennie Talbert MD
[2018-04-12] MEDS: guaiFENesin/D-METHORPHAN HB 5 ML UNIT-DOSE CUPS PO PRN (20:25)
[2018-04-12] MEDS ORDERED: PT OWN MED DRAWER 7, Y5N ONE (21:35)
[2018-04-12] MEDS: LORazepam 1 MG TABLET PO PRN (21:43)
[2018-04-13] MEDS ORDERED: diphenhydrAMINE HCL 25 MG CAPSULE (FP) PO ONE (00:15)
[2018-04-13] MEDS ORDERED: PT OWN MED DRAWER 7, Y5N ONE (09:01)
[2018-04-13] MEDS: PARoxetine HCL 20 MG TABLET (FP) PO SCH (09:15)
[2018-04-13] MEDS: AZITHROMYCIN 500 MG TABLET PO SCH (09:16)
[2018-04-13] MEDS: LITHIUM CARBONATE 300 MG CAPSULE (FP) PO SCH (09:16)
[2018-04-13 09:21] VITALS: BP 129/70; PULSE 90; TEMP 98.2
--- NOTE | 2018-04-13 10:46 | DS ---
Physical Examination Vital Signs: Vital Signs Temperature 98.2 F 04/13/18 09:10 Pulse Rate 90 04/13/18 09:10 Respiratory Rate 18 04/13/18 09:10 Blood Pressure 129/70 04/13/18 09:10 O2 Sat by Pulse Oximetry (%) 97 04/12/18 21:00 Constitutional: Yes: No Distress HENT: Yes: Atraumatic Neck: Yes: Supple Cardiovascular: Yes: Regular Rate and Rhythm Respiratory: Yes: CTA Bilaterally Gastrointestinal: Yes: Normal Bowel Sounds Extremities: Yes: WNL Neurological: Yes: Alert, Oriented Labs: CBC, BMP 04/10/18 15:10 04/10/18 15:10 Discharge Summary Reason For Visit: SUICIDAL IDEATION Current Active Problems CVA (cerebral vascular accident) (Acute) Chronic anticoagulation (Acute) Schizophrenia (Acute) Suicidal ideation (Acute) Condition: Stable - Instructions Diet, Activity, Other Instructions: Follow Up with Primary MD as instructed. Referrals: Davonte Alvarez [Primary Care Provider] - Brianna Talbert MD [Staff Physician] - Disposition: HOME - Home Medications Comprehensive Discharge Medication List: Ambulatory Orders Paroxetine HCl [Paxil] 20 mg PO DAILY 01/24/18 [place] Carbonate [Eskalith -] 600 mg PO BID #0 capsule 01/26/18 Rivaroxaban [Xarelto -] 20 mg PO DAILY 03/10/18 Azithromycin 500 mg PO DAILY #3 tablet 04/13/18 Metoprolol Succinate [Toprol XL -] 50 mg PO BID #60 tab.sr.24h 04/13/18 mi home
== END 2018-04-13 11:21 | disposition home or self-care (01) | DRG 880 ==
LOC: JER 13:46 → JERBED 18:29 → OBSVTOIN 20:37 → J5S 23:40
PROVIDERS: ADMIT Internal Medicine; ATTEND Internal Medicine
DX: R45.851 Suicidal ideations (principal); F20.0 Paranoid schizophrenia; Z86.73 Personal history of transient ischemic attack (TIA), and cerebral infarction without residual deficits; I48.2 Chronic atrial fibrillation
CPT/HCPCS: 36415; 71046-TC-FY; 80053; 80178; 80307; 81003; 85027; 93005; 93010; 99283-25; G0378